=== PATIENT | male | born 1945 | race Caucasian/White ===

== ENCOUNTER 2017-03-14 14:27 | Inpatient (IN) | payer MEDICARE, OTHER ==
[~2017-03-14] VITALS: Ht 180.3 cm; Wt 96.1 kg
[~2017-03-14 14:27] MED LIST: AMLO5TAB2 PO; ASPI-496 PO; ASPI-621 PO; ATOR20TA PO; CALC0.5C PO; CALC200T3 PO; CALC667C PO; CALC667C3 PO; CALC667T PO; CEFD300C37 PO; CINA30TA PO; CLOT100T PO; Clotrimazole PO; DOCU100C8 PO; DOCU100T3 PO; DOXE1CAP PO; EPOE40002 SQ; ERTA1VIA IV; FLUD0.1T PO; FURO40TA6 PO; LEVO125T45 PO; LISI-170 PO; METR250T PO; MIDO5TAB PO; MULT-26 PO; MULT-658 PO; MYCO250C4 PO; MYCO500T PO; MYCO500T3 PO; OMEP-110 PO; OMEP20CA14 PO; OXYC5CAP4 PO; PHOSPHORUS BINDER PO; POTA10TA12 PO; PRED5TAB PO; RENAPLEX D PO; SODI650T PO; TACR1CAP4 PO; TAMS-11 PO; VALG450T PO; VITAMIN C PO; [UNRECOGNIZED DRUG - CODE] PO; [UNRECOGNIZED DRUG - OTHER] PO; [UNRECOGNIZED DRUG - OTHER] PO; [UNRECOGNIZED DRUG - OTHER] PO
[2017-03-14] MEDS ORDERED: SODIUM CHLORIDE FLUSH 10ML SYR IVF ONE (15:30)
[2017-03-14] MEDS ORDERED: ASPIRIN 81 MG TABLET CHEW PO ONE (15:30)
[2017-03-14] MEDS ORDERED: SODIUM CHLORIDE 0.9% 1,000ML IVBOLUS ONE (15:30)
[2017-03-14] MEDS ORDERED: ASPIRIN 81 MG TABLET CHEW ONE (15:52)
[2017-03-14 16:13] LABS: BLOOD UREA NITROGEN 13 mg/dL (7-18)
[2017-03-14 16:17] LABS: ASPARTATE AMINO TRANSFERASE 18 U/L (15-37)
[2017-03-14 16:24] LABS: IS PT STATUS REG ER OR PRE ER? YES
[2017-03-14 16:38] LABS: RAPID INFLUENZA A Negative (Negative); RAPID INFLUENZA B Negative (Negative)
[2017-03-14 16:42] LABS: DIFF TOTAL CELLS COUNTED 100 CELL DIFF
[2017-03-14 16:44] LABS: VERIFY COUNTS? YES
[2017-03-14 16:45] LABS: GIANT PLATELETS 1+
[2017-03-14] MEDS ORDERED: MORPHINE SULFATE 4 MG/ML, 1ML IVPush PRN (17:30)
[2017-03-14] MEDS ORDERED: ONDANSETRON 2MG/ML, 2ML IVP PRN (17:30)
[2017-03-14] MEDS ORDERED: ACETAMINOPHEN 325 MG TABLET PO PRN (17:30)
[2017-03-14] MEDS ORDERED: GUAIFENESIN/DM 200-20MG, 10ML UDC PO PRN (17:30)
[2017-03-14 18:20] VITALS: BP 152/61
[2017-03-14] MEDS: SODIUM CHLORIDE 0.9% 1,000 ML IV SCH (19:10)
[2017-03-14] MEDS: ERTAPENEM 1 GM in SODIUM CHLORIDE 0.9% 50 ML IV SCH (19:10)
[2017-03-14] MEDS: FAMOTIDINE 20 MG TABLET PO SCH (20:56)
[2017-03-14] MEDS: TACROLIMUS 1 MG CAPSULE PO SCH (20:56)
[2017-03-14] MEDS: ATORVASTATIN 20 MG TABLET PO SCH (20:56)
[2017-03-14] MEDS: DOCUSATE 100 MG CAPSULE PO PRN (20:56)
[2017-03-14] MEDS: HYDROcodone/APAP 5/325 TABLET PO PRN (20:57)
[2017-03-14] MEDS: HEPARIN 5,000 UNITS/ML, 1ML SQ SCH (20:59)
[2017-03-14] MEDS: CALCITRIOL 0.5 MCG CAPSULE PO SCH (22:48)
[2017-03-14] MEDS: TEMAZEPAM 15 MG CAPSULE PO PRN (22:48)
[2017-03-14] MEDS: SENNOSIDES 8.6 MG TABLET PO PRN (23:44)
[2017-03-15 02:57] VITALS: BP 110/57
[2017-03-15 05:25] LABS: BLOOD UREA NITROGEN 15 mg/dL (7-18)
[2017-03-15] MEDS: LEVOTHYROXINE 175 MCG TABLET PO SCH (05:47)
[2017-03-15] MEDS: SODIUM CHLORIDE 0.9% 1,000 ML IV SCH ×2 (05:47→13:39)
[2017-03-15] MEDS: HEPARIN 5,000 UNITS/ML, 1ML SQ SCH ×3 (05:49→22:29)
[2017-03-15 07:06] VITALS: BP 116/48
[2017-03-15] MEDS: OMEPRAZOLE 20 MG CAPSULE.DR PO SCH (08:49)
[2017-03-15] MEDS: FAMOTIDINE 20 MG TABLET PO SCH ×2 (08:49→20:05)
[2017-03-15] MEDS: ASPIRIN 81 MG TABLET EC PO SCH (08:50)
[2017-03-15] MEDS: TAMSULOSIN 0.4 MG CAP.ER.24H PO SCH (08:50)
[2017-03-15] MEDS: CALCITRIOL 0.5 MCG CAPSULE PO SCH ×2 (08:51→20:05)
[2017-03-15] MEDS: TACROLIMUS 1 MG CAPSULE PO SCH ×2 (08:51→20:05)
[2017-03-15 10:36] LABS: DIFF TOTAL CELLS COUNTED 100 CELL DIFF
[2017-03-15 10:39] LABS: VERIFY COUNTS? YES
[2017-03-15 12:48] VITALS: BP 110/47
[2017-03-15] MEDS: DOCUSATE 100 MG CAPSULE PO PRN ×2 (13:39→20:23)
[2017-03-15 19:48] VITALS: BP 122/60
[2017-03-15] MEDS: ERTAPENEM 1 GM in SODIUM CHLORIDE 0.9% 50 ML IV SCH (20:05)
[2017-03-15] MEDS: ATORVASTATIN 20 MG TABLET PO SCH (20:05)
[2017-03-15] MEDS: HYDROcodone/APAP 5/325 TABLET PO PRN (20:20)
[2017-03-15] MEDS: TEMAZEPAM 15 MG CAPSULE PO PRN (22:21)
[2017-03-15] MEDS: SENNOSIDES 8.6 MG TABLET PO PRN (22:22)
[2017-03-16] MEDS: SODIUM CHLORIDE 0.9% 1,000 ML IV SCH ×2 (02:44→15:48)
[2017-03-16 03:06] VITALS: BP 132/74
[2017-03-16 05:30] LABS: BLOOD UREA NITROGEN 17 mg/dL (7-18)
[2017-03-16] MEDS: LEVOTHYROXINE 175 MCG TABLET PO SCH (05:37)
[2017-03-16] MEDS: HEPARIN 5,000 UNITS/ML, 1ML SQ SCH ×3 (05:38→21:13)
[2017-03-16 06:43] VITALS: BP 141/66
[2017-03-16] MEDS: TACROLIMUS 1 MG CAPSULE PO SCH ×2 (09:08→21:35)
[2017-03-16] MEDS: TAMSULOSIN 0.4 MG CAP.ER.24H PO SCH (09:08)
[2017-03-16] MEDS: ASPIRIN 81 MG TABLET EC PO SCH (09:08)
[2017-03-16] MEDS: CALCITRIOL 0.5 MCG CAPSULE PO SCH ×2 (09:09→21:13)
[2017-03-16] MEDS: OMEPRAZOLE 20 MG CAPSULE.DR PO SCH (09:09)
[2017-03-16] MEDS: FAMOTIDINE 20 MG TABLET PO SCH ×2 (09:10→21:12)
[2017-03-16] MEDS ORDERED: POLYETHYLENE GLYCOL 17 GM PACKET PO PRN (09:30)
[2017-03-16] MEDS ORDERED: LACTULOSE 20 GM/30 ML UDC PO ONE (09:30)
[2017-03-16] MEDS: CALCIUM CARBONATE 500 MG TABLET PO SCH ×2 (12:21→21:12)
[2017-03-16 13:20] VITALS: BP 137/72
[2017-03-16] MEDS: ATORVASTATIN 20 MG TABLET PO SCH (21:12)
[2017-03-16] MEDS: ERTAPENEM 1 GM in SODIUM CHLORIDE 0.9% 50 ML IV SCH (21:12)
[2017-03-16] MEDS: TEMAZEPAM 15 MG CAPSULE PO PRN (21:35)
[2017-03-16 23:53] VITALS: BP 130/70
[2017-03-17 04:33] VITALS: BP 133/74
[2017-03-17] MEDS: LEVOTHYROXINE 175 MCG TABLET PO SCH (05:46)
[2017-03-17] MEDS: HEPARIN 5,000 UNITS/ML, 1ML SQ SCH ×3 (05:46→21:07)
[2017-03-17 06:17] LABS: BLOOD UREA NITROGEN 11 mg/dL (7-18)
[2017-03-17] MEDS: TAMSULOSIN 0.4 MG CAP.ER.24H PO SCH (07:54)
[2017-03-17] MEDS: CALCIUM CARBONATE 500 MG TABLET PO SCH ×4 (07:54→21:07)
[2017-03-17] MEDS: FAMOTIDINE 20 MG TABLET PO SCH ×2 (07:54→21:07)
[2017-03-17] MEDS: OMEPRAZOLE 20 MG CAPSULE.DR PO SCH (07:54)
[2017-03-17] MEDS: TACROLIMUS 1 MG CAPSULE PO SCH ×2 (07:54→21:07)
[2017-03-17] MEDS: ASPIRIN 81 MG TABLET EC PO SCH (07:54)
[2017-03-17] MEDS: CALCITRIOL 0.5 MCG CAPSULE PO SCH ×2 (07:54→21:07)
[2017-03-17] MEDS: SODIUM CHLORIDE 0.9% 1,000 ML IV SCH (08:30)
[2017-03-17 09:42] VITALS: BP 136/67
[2017-03-17] MEDS ORDERED: POTASSIUM CHLORIDE 20 MEQ TAB.ER.PRT PO ONE (11:30)
[2017-03-17 16:42] VITALS: BP 115/66
[2017-03-17 18:37] VITALS: BP 129/70
[2017-03-17] MEDS: ATORVASTATIN 20 MG TABLET PO SCH (21:06)
[2017-03-17] MEDS: ERTAPENEM 1 GM in SODIUM CHLORIDE 0.9% 50 ML IV SCH (21:06)
[2017-03-17] MEDS: TEMAZEPAM 15 MG CAPSULE PO PRN (21:59)
[2017-03-18 03:32] VITALS: BP 146/81
[2017-03-18] MEDS: HEPARIN 5,000 UNITS/ML, 1ML SQ SCH ×3 (05:14→20:37)
[2017-03-18] MEDS: LEVOTHYROXINE 175 MCG TABLET PO SCH (05:14)
[2017-03-18 05:52] LABS: BLOOD UREA NITROGEN 11 mg/dL (7-18)
[2017-03-18 08:10] VITALS: BP 158/71
[2017-03-18] MEDS: TACROLIMUS 1 MG CAPSULE PO SCH ×2 (08:33→20:37)
[2017-03-18] MEDS: CALCITRIOL 0.5 MCG CAPSULE PO SCH ×2 (09:00→20:36)
[2017-03-18] MEDS: TAMSULOSIN 0.4 MG CAP.ER.24H PO SCH (09:00)
[2017-03-18] MEDS: ASPIRIN 81 MG TABLET EC PO SCH (09:00)
[2017-03-18] MEDS: FAMOTIDINE 20 MG TABLET PO SCH ×2 (09:00→20:36)
[2017-03-18] MEDS: CALCIUM CARBONATE 500 MG TABLET PO SCH ×3 (09:00→20:36)
[2017-03-18] MEDS: OMEPRAZOLE 20 MG CAPSULE.DR PO SCH (09:00)
[2017-03-18] MEDS ORDERED: MIDAZOLAM 1 MG/ML, 5ML ONE (13:03)
[2017-03-18] MEDS ORDERED: FENTANYL PF 100 MCG/2ML ONE (13:03)
[2017-03-18 14:48] VITALS: BP 122/63
[2017-03-18] MEDS: ERTAPENEM 1 GM in SODIUM CHLORIDE 0.9% 50 ML IV SCH (18:04)
[2017-03-18 19:50] VITALS: BP 126/58
[2017-03-18] MEDS: ATORVASTATIN 20 MG TABLET PO SCH (20:36)
[2017-03-18] MEDS: TEMAZEPAM 15 MG CAPSULE PO PRN (22:05)
[2017-03-19 03:11] VITALS: BP 128/57
[2017-03-19] MEDS: LEVOTHYROXINE 175 MCG TABLET PO SCH (05:14)
[2017-03-19] MEDS: HEPARIN 5,000 UNITS/ML, 1ML SQ SCH (05:15)
[2017-03-19 08:47] VITALS: BP 158/83
[2017-03-19] MEDS: OMEPRAZOLE 20 MG CAPSULE.DR PO SCH (08:50)
[2017-03-19] MEDS: ASPIRIN 81 MG TABLET EC PO SCH (08:50)
[2017-03-19] MEDS: TACROLIMUS 1 MG CAPSULE PO SCH (08:50)
[2017-03-19] MEDS: FAMOTIDINE 20 MG TABLET PO SCH (08:51)
[2017-03-19] MEDS: CALCIUM CARBONATE 500 MG TABLET PO SCH (08:51)
[2017-03-19] MEDS: TAMSULOSIN 0.4 MG CAP.ER.24H PO SCH (08:51)
[2017-03-19] MEDS: CALCITRIOL 0.5 MCG CAPSULE PO SCH (08:51)
[2017-03-19] MEDS: ERTAPENEM 1 GM in SODIUM CHLORIDE 0.9% 50 ML IV SCH (12:01)
[2017-03-19] MEDS ORDERED: TACROLIMUS PO ×2 (13:29)
== END 2017-03-19 16:29 | disposition home or self-care (01) | DRG 871 ==
LOC: ED 16:57 → EDIP 16:58 → ED 17:21 → 3NW 18:15
PROVIDERS: ADMIT Internal Medicine; ATTEND Internal Medicine
PROC: 0T9B70Z Drainage of Bladder with Drainage Device, Via Natural or Artificial Opening (ICD-10-PCS; 2017-03-14)
PROC: 02HV33Z Insertion of Infusion Device into Superior Vena Cava, Percutaneous Approach (ICD-10-PCS; principal; 2017-03-18)
PROC: B5181ZA Fluoroscopy of Superior Vena Cava using Low Osmolar Contrast, Guidance (ICD-10-PCS; 2017-03-18)
PROC: 0JH63XZ Insertion of Tunneled Vascular Access Device into Chest Subcutaneous Tissue and Fascia, Percutaneous Approach (ICD-10-PCS; 2017-03-18)
DX: A41.9 Sepsis, unspecified organism (principal); N17.0 Acute kidney failure with tubular necrosis; Z94.0 Kidney transplant status; E46 Unspecified protein-calorie malnutrition; N10 Acute pyelonephritis; D84.8 Other specified immunodeficiencies; R00.0 Tachycardia, unspecified; B96.1 Klebsiella pneumoniae [K. pneumoniae] as the cause of diseases classified elsewhere; D63.8 Anemia in other chronic diseases classified elsewhere; E78.00 Pure hypercholesterolemia, unspecified; E78.5 Hyperlipidemia, unspecified; E83.51 Hypocalcemia; E89.0 Postprocedural hypothyroidism; I25.10 Atherosclerotic heart disease of native coronary artery without angina pectoris; I44.1 Atrioventricular block, second degree; J44.9 Chronic obstructive pulmonary disease, unspecified; K59.00 Constipation, unspecified; Z16.12 Extended spectrum beta lactamase (ESBL) resistance; N18.3 Chronic kidney disease, stage 3 (moderate); I12.9 Hypertensive chronic kidney disease with stage 1 through stage 4 chronic kidney disease, or unspecified chronic kidney disease; B96.20 Unspecified Escherichia coli [E. coli] as the cause of diseases classified elsewhere; M19.90 Unspecified osteoarthritis, unspecified site; E66.9 Obesity, unspecified; N30.90 Cystitis, unspecified without hematuria; Z79.82 Long term (current) use of aspirin; Z82.49 Family history of ischemic heart disease and other diseases of the circulatory system; Z83.3 Family history of diabetes mellitus; Z85.528 Personal history of other malignant neoplasm of kidney; Z87.440 Personal history of urinary (tract) infections; Z87.442 Personal history of urinary calculi; Z90.49 Acquired absence of other specified parts of digestive tract; Z90.5 Acquired absence of kidney; Z98.84 Bariatric surgery status; Z99.2 Dependence on renal dialysis; Z87.01 Personal history of pneumonia (recurrent); Z88.8 Allergy status to other drugs, medicaments and biological substances; Z91.041 Radiographic dye allergy status; Z68.29 Body mass index [BMI] 29.0-29.9, adult; Z87.891 Personal history of nicotine dependence; J84.10 Pulmonary fibrosis, unspecified
CPT/HCPCS: 36415; 36558; 71010; 76937; 77001; 80048; 80053; 80197; 81001; 83605; 84145; 84443; 84484; 85025; 85610; 85730; 87040; 87077; 87086; 87186; 87400; 93005; J1335; J1644; J2250; J3010; J7507; C1751; J7030; J7512; J7517

== ENCOUNTER 2017-04-29 10:17 | Day surgery (SDC) | payer MEDICARE, OTHER ==
[~2017-04-29] VITALS: Ht 180.3 cm; Wt 96.0 kg
[~2017-04-29 10:17] MED LIST changes: +TACROLIMUS PO
[2017-04-29 11:13] VITALS: BP 155/84
[2017-04-29] MEDS ORDERED: SODIUM CHLORIDE 0.9% 1,000 ML IV SCH (11:15)
[2017-04-29] MEDS ORDERED: FLUMAZENIL 0.1 MG/1 ML, 5ML ONE (11:30)
[2017-04-29] MEDS ORDERED: MIDAZOLAM 1 MG/ML, 5ML ONE (11:30)
[2017-04-29] MEDS ORDERED: NALOXONE 1 MG/ML, 2ML ONE (11:30)
[2017-04-29] MEDS ORDERED: FENTANYL PF 100 MCG/2ML ONE (11:30)
[2017-04-29] MEDS ORDERED: LIDOCAINE 1%, 20ML ONE (11:32)
== END 2017-04-29 13:15 | disposition home or self-care (01) ==
LOC: OUT 10:17
PROVIDERS: ATTEND Internal Medicine Infectious Disease
DX: Z45.2 Encounter for adjustment and management of vascular access device (principal); I13.0 Hypertensive heart and chronic kidney disease with heart failure and stage 1 through stage 4 chronic kidney disease, or unspecified chronic kidney disease; I50.30 Unspecified diastolic (congestive) heart failure; N18.6 End stage renal disease; E03.9 Hypothyroidism, unspecified; E78.00 Pure hypercholesterolemia, unspecified; E78.5 Hyperlipidemia, unspecified; E66.9 Obesity, unspecified; F17.210 Nicotine dependence, cigarettes, uncomplicated; M19.90 Unspecified osteoarthritis, unspecified site; D63.8 Anemia in other chronic diseases classified elsewhere; Z90.5 Acquired absence of kidney; Z90.49 Acquired absence of other specified parts of digestive tract; Z88.8 Allergy status to other drugs, medicaments and biological substances; Z83.3 Family history of diabetes mellitus; Z82.49 Family history of ischemic heart disease and other diseases of the circulatory system; Z94.0 Kidney transplant status; Z68.39 Body mass index [BMI] 39.0-39.9, adult; Z79.82 Long term (current) use of aspirin; Z85.528 Personal history of other malignant neoplasm of kidney; R00.0 Tachycardia, unspecified; Z98.84 Bariatric surgery status
CPT/HCPCS: 36589; 77001; 99156; 99157; J2250; J3010; J3490; J7030; J2310

== ENCOUNTER 2017-05-02 10:33 | Inpatient (IN) | payer MEDICARE, OTHER ==
[~2017-05-02] VITALS: Ht 180.3 cm; Wt 96.8 kg
[2017-05-02] MEDS ORDERED: DOCUSATE 100 MG CAPSULE PO PRN (15:00)
[2017-05-02] MEDS ORDERED: ACETAMINOPHEN 325 MG TABLET ONE (16:54)
[2017-05-03] MEDS: LEVOTHYROXINE 175 MCG TABLET PO SCH (00:15)
[2017-05-03] MEDS ORDERED: HEPARIN 5,000 UNITS/ML, 1ML ONE (00:15)
[2017-05-03] MEDS: HEPARIN 5,000 UNITS/ML, 1ML SQ SCH ×4 (00:15→21:58)
[2017-05-03] MEDS: MEROPENEM 1 GM in SODIUM CHLORIDE 0.9% 100 ML IV SCH ×2 (02:00→14:00)
[2017-05-03] MEDS ORDERED: ACETAMINOPHEN 325 MG TABLET ONE (02:21)
[2017-05-03 07:29] VITALS: BP 127/63
[2017-05-03] MEDS: TACROLIMUS 1 MG CAPSULE PO SCH ×3 (10:00→21:28)
[2017-05-03] MEDS: VALGANCICLOVIR 450MG TABLET PO SCH (13:00)
[2017-05-03 14:45] VITALS: BP 110/63
[2017-05-03] MEDS ORDERED: TACR1CAP2 PO (14:45)
[2017-05-03] MEDS ORDERED: ACETAMINOPHEN 325 MG TABLET PO PRN (15:00)
[2017-05-03] MEDS ORDERED: MYCO500T PO (15:04)
[2017-05-03] MEDS ORDERED: OMEP20CA14 PO (15:14)
[2017-05-03] MEDS ORDERED: PRED-402 PO (15:17)
[2017-05-03] MEDS ORDERED: VALG450T PO (15:19)
[2017-05-03] MEDS ORDERED: SULF1TAB23 PO (15:21)
[2017-05-03] MEDS ORDERED: LEVO175T31 PO (15:24)
[2017-05-03] MEDS ORDERED: CALC0.5C PO (15:26)
[2017-05-03] MEDS ORDERED: TAMS-11 PO (15:26)
[2017-05-03] MEDS ORDERED: POTA10TA11 PO (15:31)
[2017-05-03] MEDS ORDERED: MAGN400T36 PO (15:33)
[2017-05-03 20:26] VITALS: BP 121/66
[2017-05-03] MEDS ORDERED: TACROLIMUS 1 MG CAPSULE PO SCH (21:00)
[2017-05-03] MEDS: ATORVASTATIN 20 MG TABLET PO SCH (21:28)
[2017-05-03] MEDS: POTASSIUM CHLORIDE 10 MEQ TABLET.ER PO SCH (21:28)
[2017-05-03] MEDS: CALCITRIOL 0.5 MCG CAPSULE PO SCH (21:57)
[2017-05-04] MEDS: MEROPENEM 1 GM in SODIUM CHLORIDE 0.9% 100 ML IV SCH ×2 (01:52→14:34)
[2017-05-04 01:55] VITALS: BP 97/61
[2017-05-04 06:01] LABS: ASPARTATE AMINO TRANSFERASE 12 U/L (15-37); BLOOD UREA NITROGEN 20 mg/dL (7-18)
[2017-05-04] MEDS: LEVOTHYROXINE 175 MCG TABLET PO SCH (06:24)
[2017-05-04] MEDS: HEPARIN 5,000 UNITS/ML, 1ML SQ SCH ×3 (06:25→22:00)
[2017-05-04] MEDS: ASPIRIN 81 MG TABLET EC PO SCH (08:45)
[2017-05-04] MEDS: VALGANCICLOVIR 450MG TABLET PO SCH (08:45)
[2017-05-04] MEDS: POTASSIUM CHLORIDE 10 MEQ TABLET.ER PO SCH ×2 (08:45→20:14)
[2017-05-04] MEDS: TACROLIMUS 1 MG CAPSULE PO SCH ×2 (08:45→20:14)
[2017-05-04] MEDS: TAMSULOSIN 0.4 MG CAP.ER.24H PO SCH (08:45)
[2017-05-04] MEDS: CALCITRIOL 0.5 MCG CAPSULE PO SCH ×2 (08:45→20:15)
[2017-05-04 12:09] VITALS: BP 144/86
[2017-05-04 16:07] VITALS: BP 136/82
[2017-05-04 19:59] VITALS: BP 114/70
[2017-05-04] MEDS: ATORVASTATIN 20 MG TABLET PO SCH (20:14)
[2017-05-04] MEDS ORDERED: TEMAZEPAM 15 MG CAPSULE PO ONE (21:00)
[2017-05-04 23:06] LABS: ABSOLUTE CD 4 HELPER 29 /uL (359-1519); HEMATOCRIT 36.9 % (37.5-51.0); HEMOGLOBIN 12.4 g/dL (12.6-17.7); IMMATURE GRANULOCYTES 0 % (.); MCH 31.4 pg (26.6-33.0); MCHC 33.6 g/dL (31.5-35.7); MCV 93 fL (79-97); MONOCYTES 7 % (.); NEUTROPHILS 91 % (.); PLATELETS 143 x10E3/uL (150-379); RBC 3.95 x10E6/uL (4.14-5.80); RDW 14.3 % (12.3-15.4); WBC 15.4 x10E3/uL (3.4-10.8)
[2017-05-05 01:59] VITALS: BP 124/80
[2017-05-05] MEDS: MEROPENEM 1 GM in SODIUM CHLORIDE 0.9% 100 ML IV SCH ×2 (02:04→14:28)
[2017-05-05] MEDS: LEVOTHYROXINE 175 MCG TABLET PO SCH (06:08)
[2017-05-05] MEDS: HEPARIN 5,000 UNITS/ML, 1ML SQ SCH ×3 (06:08→21:56)
[2017-05-05 08:01] VITALS: BP 117/72
[2017-05-05] MEDS: ASPIRIN 81 MG TABLET EC PO SCH (08:03)
[2017-05-05] MEDS: CALCITRIOL 0.5 MCG CAPSULE PO SCH ×2 (08:03→20:09)
[2017-05-05] MEDS: TACROLIMUS 1 MG CAPSULE PO SCH ×2 (08:03→20:08)
[2017-05-05] MEDS: TAMSULOSIN 0.4 MG CAP.ER.24H PO SCH (08:03)
[2017-05-05] MEDS: POTASSIUM CHLORIDE 10 MEQ TABLET.ER PO SCH ×2 (08:03→20:09)
[2017-05-05] MEDS: VALGANCICLOVIR 450MG TABLET PO SCH (08:04)
[2017-05-05 10:04] LABS: ASPARTATE AMINO TRANSFERASE 16 U/L (15-37)
[2017-05-05 10:09] LABS: BLOOD UREA NITROGEN 19 mg/dL (7-18)
[2017-05-05 14:31] VITALS: BP 116/64
[2017-05-05 15:12] VITALS: BP 119/66
[2017-05-05 15:42] LABS: ASPARTATE AMINO TRANSFERASE 12 U/L (15-37); BLOOD UREA NITROGEN 21 mg/dL (7-18)
[2017-05-05 16:00] LABS: ASPARTATE AMINO TRANSFERASE 18 U/L (15-37); BLOOD UREA NITROGEN 18 mg/dL (7-18)
[2017-05-05 20:07] VITALS: BP 121/71
[2017-05-05] MEDS: ATORVASTATIN 20 MG TABLET PO SCH (20:08)
[2017-05-05] MEDS: TEMAZEPAM 15 MG CAPSULE PO PRN (21:56)
[2017-05-06] MEDS: MEROPENEM 1 GM in SODIUM CHLORIDE 0.9% 100 ML IV SCH ×2 (01:34→14:29)
[2017-05-06 01:38] VITALS: BP 126/78
[2017-05-06 05:43] LABS: ASPARTATE AMINO TRANSFERASE 21 U/L (15-37); BLOOD UREA NITROGEN 17 mg/dL (7-18)
[2017-05-06] MEDS: LEVOTHYROXINE 175 MCG TABLET PO SCH (06:03)
[2017-05-06] MEDS: HEPARIN 5,000 UNITS/ML, 1ML SQ SCH ×3 (06:04→21:19)
[2017-05-06 08:00] VITALS: BP 121/72
[2017-05-06] MEDS: CALCITRIOL 0.5 MCG CAPSULE PO SCH ×2 (09:09→21:18)
[2017-05-06] MEDS: VALGANCICLOVIR 450MG TABLET PO SCH (09:09)
[2017-05-06] MEDS: TAMSULOSIN 0.4 MG CAP.ER.24H PO SCH (09:10)
[2017-05-06] MEDS: ASPIRIN 81 MG TABLET EC PO SCH (09:10)
[2017-05-06] MEDS: POTASSIUM CHLORIDE 10 MEQ TABLET.ER PO SCH ×2 (09:10→21:19)
[2017-05-06] MEDS: TACROLIMUS 1 MG CAPSULE PO SCH ×2 (09:10→21:19)
[2017-05-06 14:00] VITALS: BP 120/73
[2017-05-06 20:00] VITALS: BP 129/69
[2017-05-06] MEDS: ATORVASTATIN 20 MG TABLET PO SCH (21:19)
[2017-05-06] MEDS: TEMAZEPAM 15 MG CAPSULE PO PRN (23:01)
[2017-05-07 02:00] VITALS: BP 111/67
[2017-05-07] MEDS: MEROPENEM 1 GM in SODIUM CHLORIDE 0.9% 100 ML IV SCH ×2 (02:30→14:25)
[2017-05-07 05:34] LABS: BLOOD UREA NITROGEN 13 mg/dL (7-18)
[2017-05-07] MEDS: HEPARIN 5,000 UNITS/ML, 1ML SQ SCH ×3 (06:00→21:10)
[2017-05-07] MEDS: LEVOTHYROXINE 175 MCG TABLET PO SCH (06:00)
[2017-05-07 06:35] VITALS: BP 113/68
[2017-05-07] MEDS: ASPIRIN 81 MG TABLET EC PO SCH (08:22)
[2017-05-07] MEDS: VALGANCICLOVIR 450MG TABLET PO SCH (08:22)
[2017-05-07] MEDS: POTASSIUM CHLORIDE 10 MEQ TABLET.ER PO SCH ×2 (08:22→21:10)
[2017-05-07] MEDS: TAMSULOSIN 0.4 MG CAP.ER.24H PO SCH (08:22)
[2017-05-07] MEDS: TACROLIMUS 1 MG CAPSULE PO SCH ×2 (08:22→21:09)
[2017-05-07] MEDS: CALCITRIOL 0.5 MCG CAPSULE PO SCH ×2 (08:22→21:10)
[2017-05-07 13:27] VITALS: BP 106/69
[2017-05-07 19:52] VITALS: BP 118/72
[2017-05-07] MEDS: ATORVASTATIN 20 MG TABLET PO SCH (21:10)
[2017-05-07] MEDS: TEMAZEPAM 15 MG CAPSULE PO PRN (22:56)
[2017-05-08 02:00] VITALS: BP 114/68
[2017-05-08] MEDS: MEROPENEM 1 GM in SODIUM CHLORIDE 0.9% 100 ML IV SCH ×2 (02:23→14:29)
[2017-05-08 05:44] LABS: ASPARTATE AMINO TRANSFERASE 31 U/L (15-37); BLOOD UREA NITROGEN 12 mg/dL (7-18); TOTAL IRON BINDING CAPACITY 283 mcg/dL (250-450)
[2017-05-08] MEDS: HEPARIN 5,000 UNITS/ML, 1ML SQ SCH ×3 (06:00→20:41)
[2017-05-08] MEDS: LEVOTHYROXINE 175 MCG TABLET PO SCH (06:24)
[2017-05-08 07:00] VITALS: BP 108/65
[2017-05-08] MEDS: ASPIRIN 81 MG TABLET EC PO SCH (07:22)
[2017-05-08] MEDS: VALGANCICLOVIR 450MG TABLET PO SCH (08:07)
[2017-05-08] MEDS: TACROLIMUS 1 MG CAPSULE PO SCH ×2 (08:07→20:42)
[2017-05-08] MEDS: TAMSULOSIN 0.4 MG CAP.ER.24H PO SCH (08:07)
[2017-05-08] MEDS: POTASSIUM CHLORIDE 10 MEQ TABLET.ER PO SCH ×2 (08:07→20:42)
[2017-05-08] MEDS: CALCITRIOL 0.5 MCG CAPSULE PO SCH ×2 (08:07→20:42)
[2017-05-08] MEDS ORDERED: METOPROLOL TARTRATE 25 MG TABLET PO SCH (09:30)
[2017-05-08] MEDS ORDERED: LIDOCAINE 2%, 20ML ONE (11:45)
[2017-05-08] MEDS ORDERED: MIDAZOLAM 1 MG/ML, 5ML ONE (12:09)
[2017-05-08] MEDS ORDERED: FENTANYL PF 100 MCG/2ML ONE (12:09)
[2017-05-08 14:27] VITALS: BP 107/55
[2017-05-08] MEDS: POTASSIUM CHLORIDE 20 MEQ TAB.ER.PRT PO SCH (16:30)
[2017-05-08 19:46] VITALS: BP 111/70
[2017-05-08] MEDS: ATORVASTATIN 20 MG TABLET PO SCH (20:42)
[2017-05-08] MEDS ORDERED: APIXABAN 5 MG TABLET PO SCH (21:00)
[2017-05-08] MEDS: TEMAZEPAM 15 MG CAPSULE PO PRN (22:31)
[2017-05-09] MEDS: MEROPENEM 1 GM in SODIUM CHLORIDE 0.9% 100 ML IV SCH ×2 (02:29→12:09)
[2017-05-09 03:07] VITALS: BP 107/62
[2017-05-09 04:11] LABS: ASPARTATE AMINO TRANSFERASE 24 U/L (15-37); BLOOD UREA NITROGEN 17 mg/dL (7-18)
[2017-05-09] MEDS: HEPARIN 5,000 UNITS/ML, 1ML SQ SCH (05:45)
[2017-05-09] MEDS: LEVOTHYROXINE 175 MCG TABLET PO SCH (05:45)
[2017-05-09 07:18] VITALS: BP 107/66
[2017-05-09] MEDS: TAMSULOSIN 0.4 MG CAP.ER.24H PO SCH (08:06)
[2017-05-09] MEDS: POTASSIUM CHLORIDE 10 MEQ TABLET.ER PO SCH (08:06)
[2017-05-09] MEDS: ASPIRIN 81 MG TABLET EC PO SCH (08:06)
[2017-05-09] MEDS: TACROLIMUS 1 MG CAPSULE PO SCH (08:06)
[2017-05-09] MEDS: CALCITRIOL 0.5 MCG CAPSULE PO SCH (08:07)
[2017-05-09] MEDS: VALGANCICLOVIR 450MG TABLET PO SCH (08:07)
[2017-05-09] MEDS: POTASSIUM CHLORIDE 20 MEQ TAB.ER.PRT PO SCH (08:07)
[2017-05-09] MEDS ORDERED: ERTA1VIA IV (11:04)
[2017-05-09] MEDS ORDERED: PRED5TAB PO (11:04)
[2017-05-09] MEDS ORDERED: MYCO500T3 PO (11:10)
[2017-05-09 12:53] VITALS: BP 110/66
[2017-05-13 18:07] LABS: COCCIDIOIDES AB (CF) <1:2 (<1:2); COCCIDIOIDES IGG 1.7 IV (<=0.9); COCCIDIOIDES IGM 0.2 IV (<=0.9)
== END 2017-05-09 12:08 | disposition home or self-care (01) | DRG 872 ==
LOC: ED 10:33 → 4WST 14:38 → UNDOADMIN 17:01 → EDIP 17:01 → 4WST 21:00 → EDIP 21:00
PROVIDERS: ADMIT Internal Medicine; ATTEND Internal Medicine
PROC: 05HM33Z Insertion of Infusion Device into Right Internal Jugular Vein, Percutaneous Approach (ICD-10-PCS; principal; 2017-05-08)
PROC: B5131ZA Fluoroscopy of Right Jugular Veins using Low Osmolar Contrast, Guidance (ICD-10-PCS; 2017-05-08)
DX: A41.9 Sepsis, unspecified organism (principal); N12 Tubulo-interstitial nephritis, not specified as acute or chronic; I50.32 Chronic diastolic (congestive) heart failure; I13.0 Hypertensive heart and chronic kidney disease with heart failure and stage 1 through stage 4 chronic kidney disease, or unspecified chronic kidney disease; E44.0 Moderate protein-calorie malnutrition; N17.9 Acute kidney failure, unspecified; T86.13 Kidney transplant infection; Z68.29 Body mass index [BMI] 29.0-29.9, adult; B96.20 Unspecified Escherichia coli [E. coli] as the cause of diseases classified elsewhere; D63.1 Anemia in chronic kidney disease; E21.3 Hyperparathyroidism, unspecified; E89.0 Postprocedural hypothyroidism; I25.10 Atherosclerotic heart disease of native coronary artery without angina pectoris; I44.1 Atrioventricular block, second degree; I48.0 Paroxysmal atrial fibrillation; N18.3 Chronic kidney disease, stage 3 (moderate); N20.0 Calculus of kidney; N25.0 Renal osteodystrophy; R65.20 Severe sepsis without septic shock; Z79.2 Long term (current) use of antibiotics; Z83.3 Family history of diabetes mellitus; Z84.1 Family history of disorders of kidney and ureter; Z85.528 Personal history of other malignant neoplasm of kidney; Z87.440 Personal history of urinary (tract) infections; Z87.442 Personal history of urinary calculi; Z87.891 Personal history of nicotine dependence; Z90.49 Acquired absence of other specified parts of digestive tract; Z90.5 Acquired absence of kidney; J84.10 Pulmonary fibrosis, unspecified
CPT/HCPCS: 36415; 36558; 71020; 74176; 76937; 77001; 80048; 80053; 81001; 82306; 82728; 83540; 83550; 83605; 83970; 84100; 85025; 85610; 85730; 86361; 86635; 87040; 87077; 87086; 87186; 87324; 93005; 93306; 99285; C1894; J1644; J2185; J2250; J3010; J3490; J7507; J1642; J7512; J7517

== ENCOUNTER → 2017-06-01 | Outpatient (CLI) | payer MEDICARE, OTHER ==
[~2017-06-01] MED LIST changes: +LEVO175T31 PO; +MAGN400T36 PO; +POTA10TA11 PO; +PRED-402 PO; +SULF1TAB23 PO; +TACR1CAP2 PO
== END | disposition home or self-care (01) ==
LOC: STAR 13:52
PROVIDERS: ATTEND Internal Medicine Infectious Disease
DX: Z01.818 Encounter for other preprocedural examination (principal); I45.81 Long QT syndrome
CPT/HCPCS: 93005

== ENCOUNTER → 2017-06-02 | Outpatient (CLI) | payer MEDICARE, OTHER ==
[~2017-06-02] MED LIST changes: +HEPARIN 5,000 UNITS/ML, 1ML ONE
== END | disposition home or self-care (01) ==
LOC: CFH 10:03
PROVIDERS: ATTEND Nurse Practitioner Family
DX: Z02.9 Encounter for administrative examinations, unspecified (principal)
CPT/HCPCS: 71020

== ENCOUNTER 2017-07-13 21:04 | Emergency (ER) | payer MEDICARE, OTHER ==
[~2017-07-13] VITALS: Ht 180.3 cm; Wt 99.7 kg
[~2017-07-13 21:04] MED LIST changes: -HEPARIN 5,000 UNITS/ML, 1ML ONE
[2017-07-13] MEDS ORDERED: SODIUM CHLORIDE FLUSH 10ML SYR IVF ONE (21:30)
[2017-07-13 22:03] LABS: HEMATOCRIT 36.7 % (39.2-51.8); HEMOGLOBIN 12.3 g/dL (13.7-18.0); WHITE BLOOD COUNT 9.3 x10^3/uL (3.4-10)
[2017-07-13 22:17] LABS: ASPARTATE AMINO TRANSFERASE 18 U/L (15-37); BLOOD UREA NITROGEN 14 mg/dL (7-18)
[2017-07-13] MEDS ORDERED: AMLO5TAB2 PO (22:21)
[2017-07-13] MEDS ORDERED: LEVO500T8 PO (22:21)
[2017-07-13] MEDS ORDERED: FINA5TAB4 PO (22:21)
[2017-07-14 00:23] VITALS: BP 123/69
== END 2017-07-14 00:25 | disposition home or self-care (01) ==
LOC: ED 22:37
DX: R50.9 Fever, unspecified (principal); R30.0 Dysuria; R51 Headache
CPT/HCPCS: 36415; 71020; 80053; 81003; 83605; 84145; 85025; 85610; 85730; 87040; 87077; 87150; 87186; 99285

== ENCOUNTER 2017-07-14 19:27 | Inpatient (IN) | payer MEDICARE, OTHER ==
[~2017-07-14] VITALS: Ht 181.6 cm; Wt 102.4 kg
[~2017-07-14 19:27] MED LIST changes: +FINA5TAB4 PO; +LEVO500T8 PO
[2017-07-14] MEDS ORDERED: SODIUM CHLORIDE FLUSH 10ML SYR IVF ONE (20:00)
[2017-07-14] MEDS ORDERED: SODIUM CHLORIDE 0.9% 1,000ML IVBOLUS ONE (20:00)
[2017-07-14 20:04] LABS: HEMATOCRIT 36.6 % (39.2-51.8); HEMOGLOBIN 12.4 g/dL (13.7-18.0); WHITE BLOOD COUNT 7.6 x10^3/uL (3.4-10)
[2017-07-14 20:13] LABS: ASPARTATE AMINO TRANSFERASE 19 U/L (15-37); BLOOD UREA NITROGEN 11 mg/dL (7-18)
[2017-07-14] MEDS ORDERED: PHARMACOKINETIC MONITORING MC ONE (21:00)
[2017-07-14] MEDS ORDERED: VANCOMYCIN PER PHARMACY MC ONE (21:00)
[2017-07-14] MEDS ORDERED: PHARMACOKINETIC CONSULTATION MC ONE ×2 (21:00→23:00)
[2017-07-14] MEDS ORDERED: VANCOMYCIN 1,800 MG in SODIUM CHLORIDE 0.9% 250 ML IV ONE (21:00)
[2017-07-14] MEDS ORDERED: TEMAZEPAM 15 MG CAPSULE PO PRN (22:00)
[2017-07-14] MEDS ORDERED: ONDANSETRON 2MG/ML, 2ML IVPush PRN (22:00)
[2017-07-14] MEDS ORDERED: BISACODYL 10 MG SUPP PR PRN (22:00)
[2017-07-14] MEDS ORDERED: POLYETHYLENE GLYCOL 17 GM PACKET PO PRN (22:00)
[2017-07-14] MEDS ORDERED: ACETAMINOPHEN 325 MG TABLET PO PRN (22:00)
[2017-07-14] MEDS ORDERED: VANCOMYCIN PER PHARMACY MC PRN (22:00)
[2017-07-14] MEDS ORDERED: DOCUSATE 100 MG CAPSULE PO PRN (22:00)
[2017-07-14] MEDS ORDERED: HYDROcodone/APAP 5/325 TABLET PO PRN (22:00)
[2017-07-14 22:30] VITALS: BP 112/66
[2017-07-14 22:40] VITALS: BP 112/66
[2017-07-14] MEDS ORDERED: PHARMACOKINETIC MONITORING MC PRN (23:00)
[2017-07-14] MEDS: MEROPENEM 1 GM in SODIUM CHLORIDE 0.9% 50 ML IV SCH (23:56)
[2017-07-14] MEDS: ENOXAPARIN 40 MG/0.4 ML SQ SCH (23:56)
[2017-07-15 00:39] LABS: BLOOD UREA NITROGEN 11 mg/dL (7-18)
[2017-07-15 01:55] LABS: DIFF TOTAL CELLS COUNTED 100 CELL DIFF; HEMATOCRIT 33.3 % (39.2-51.8); WHITE BLOOD COUNT 6.3 x10^3/uL (3.4-10)
[2017-07-15 01:59] LABS: VERIFY COUNTS? YES
[2017-07-15 02:04] LABS: OVALOCYTES 1+; POLYCHROMASIA 1+
[2017-07-15 04:17] VITALS: BP 131/57
[2017-07-15] MEDS: MEROPENEM 1 GM in SODIUM CHLORIDE 0.9% 50 ML IV SCH ×3 (07:10→23:45)
[2017-07-15 07:18] VITALS: BP 112/66
[2017-07-15] MEDS: TAMSULOSIN 0.4 MG CAP.ER.24H PO SCH (08:36)
[2017-07-15] MEDS: ASPIRIN 81 MG TABLET EC PO SCH (08:36)
[2017-07-15] MEDS: SODIUM CHLORIDE FLUSH 10ML SYR IVF SCH ×2 (08:36→20:20)
[2017-07-15] MEDS: LEVOTHYROXINE 175 MCG TABLET PO SCH (08:37)
[2017-07-15] MEDS: MAGNESIUM OXIDE 400 MG TABLET PO SCH ×2 (08:37→20:20)
[2017-07-15] MEDS: TACROLIMUS 1 MG CAPSULE PO SCH ×2 (08:37→20:20)
[2017-07-15] MEDS: AMLODIPINE 5 MG TABLET PO SCH (08:37)
[2017-07-15] MEDS: OMEPRAZOLE 20 MG CAPSULE.DR PO SCH (08:37)
[2017-07-15] MEDS: CALCITRIOL 0.5 MCG CAPSULE PO SCH ×2 (08:37→20:19)
[2017-07-15] MEDS ORDERED: POTASSIUM CHLORIDE 10 MEQ TABLET.ER PO SCH (09:00)
[2017-07-15 13:15] VITALS: BP 122/70
[2017-07-15 19:10] VITALS: BP 100/67
[2017-07-15] MEDS: POTASSIUM CHLORIDE 10 MEQ TABLET.ER PO SCH (20:19)
[2017-07-15] MEDS: VANCOMYCIN 1,900 MG in SODIUM CHLORIDE 0.9% 250 ML IV SCH (20:19)
[2017-07-15] MEDS: ATORVASTATIN 20 MG TABLET PO SCH (20:19)
[2017-07-15] MEDS: FINASTERIDE 5 MG TABLET PO SCH (20:20)
[2017-07-15] MEDS: ENOXAPARIN 40 MG/0.4 ML SQ SCH (21:31)
[2017-07-16 04:07] VITALS: BP 107/71
[2017-07-16 04:42] LABS: HEMATOCRIT 32.5 % (39.2-51.8); HEMOGLOBIN 10.9 g/dL (13.7-18.0); WHITE BLOOD COUNT 4.4 x10^3/uL (3.4-10)
[2017-07-16 04:44] LABS: BLOOD UREA NITROGEN 9 mg/dL (7-18)
[2017-07-16 04:50] LABS: FERRITIN 389.5 ng/mL (26-388); TOTAL IRON BINDING CAPACITY 206 mcg/dL (250-450)
[2017-07-16 05:44] LABS: DIFF TOTAL CELLS COUNTED 100 CELL DIFF
[2017-07-16 05:46] LABS: POLYCHROMASIA 1+; VERIFY COUNTS? YES
[2017-07-16 07:23] VITALS: BP 122/63
[2017-07-16] MEDS ORDERED: MAGNESIUM SULFATE PMX 2GM/50ML 50 ML IV ONE (07:30)
[2017-07-16] MEDS: TACROLIMUS 1 MG CAPSULE PO SCH ×2 (07:32→21:20)
[2017-07-16] MEDS: MEROPENEM 1 GM in SODIUM CHLORIDE 0.9% 50 ML IV SCH ×2 (07:32→16:28)
[2017-07-16] MEDS: LEVOTHYROXINE 175 MCG TABLET PO SCH (07:32)
[2017-07-16] MEDS: MAGNESIUM OXIDE 400 MG TABLET PO SCH ×3 (07:32→21:19)
[2017-07-16] MEDS: CALCITRIOL 0.5 MCG CAPSULE PO SCH ×2 (07:32→21:20)
[2017-07-16] MEDS: OMEPRAZOLE 20 MG CAPSULE.DR PO SCH (07:32)
[2017-07-16] MEDS: AMLODIPINE 5 MG TABLET PO SCH (07:33)
[2017-07-16] MEDS: POTASSIUM CHLORIDE 10 MEQ TABLET.ER PO SCH ×3 (07:33→21:19)
[2017-07-16] MEDS: TAMSULOSIN 0.4 MG CAP.ER.24H PO SCH (07:33)
[2017-07-16] MEDS: ASPIRIN 81 MG TABLET EC PO SCH (07:33)
[2017-07-16] MEDS: SODIUM CHLORIDE FLUSH 10ML SYR IVF SCH ×2 (07:33→21:18)
[2017-07-16] MEDS: CHOLECALCIFEROL 1,000 UNIT TABLET PO SCH (09:31)
[2017-07-16] MEDS: CALCIUM CARBONATE 500 MG TABLET PO SCH ×3 (09:31→21:19)
[2017-07-16 13:09] VITALS: BP 106/66
[2017-07-16] MEDS ORDERED: LIDOCAINE 1%, 20ML ONE (15:41)
[2017-07-16] MEDS: VANCOMYCIN 1,900 MG in SODIUM CHLORIDE 0.9% 250 ML IV SCH (19:58)
[2017-07-16 20:00] VITALS: BP 127/76
[2017-07-16] MEDS: ATORVASTATIN 20 MG TABLET PO SCH (21:19)
[2017-07-16] MEDS: FINASTERIDE 5 MG TABLET PO SCH (21:20)
[2017-07-16] MEDS: ENOXAPARIN 40 MG/0.4 ML SQ SCH (21:20)
[2017-07-17] MEDS: MEROPENEM 1 GM in SODIUM CHLORIDE 0.9% 50 ML IV SCH ×4 (00:21→23:11)
[2017-07-17 02:00] VITALS: BP 142/78
[2017-07-17 04:25] LABS: HEMATOCRIT 33.7 % (39.2-51.8); HEMOGLOBIN 11.3 g/dL (13.7-18.0); WHITE BLOOD COUNT 4.8 x10^3/uL (3.4-10)
[2017-07-17 04:38] LABS: BLOOD UREA NITROGEN 8 mg/dL (7-18)
[2017-07-17 07:40] VITALS: BP 148/78
[2017-07-17] MEDS: MAGNESIUM OXIDE 400 MG TABLET PO SCH ×3 (08:27→17:48)
[2017-07-17] MEDS: ASPIRIN 81 MG TABLET EC PO SCH (08:28)
[2017-07-17] MEDS: SODIUM CHLORIDE FLUSH 10ML SYR IVF SCH ×2 (08:28→19:56)
[2017-07-17] MEDS: TAMSULOSIN 0.4 MG CAP.ER.24H PO SCH (08:29)
[2017-07-17] MEDS: POTASSIUM CHLORIDE 10 MEQ TABLET.ER PO SCH ×3 (08:29→19:56)
[2017-07-17] MEDS: TACROLIMUS 1 MG CAPSULE PO SCH ×2 (08:29→19:56)
[2017-07-17] MEDS: CALCIUM CARBONATE 500 MG TABLET PO SCH ×3 (08:30→19:56)
[2017-07-17] MEDS: AMLODIPINE 5 MG TABLET PO SCH (08:30)
[2017-07-17] MEDS: LEVOTHYROXINE 175 MCG TABLET PO SCH (08:31)
[2017-07-17] MEDS: OMEPRAZOLE 20 MG CAPSULE.DR PO SCH (08:31)
[2017-07-17] MEDS: CHOLECALCIFEROL 1,000 UNIT TABLET PO SCH (08:31)
[2017-07-17] MEDS: CALCITRIOL 0.5 MCG CAPSULE PO SCH ×2 (08:31→19:56)
[2017-07-17 13:52] VITALS: BP 133/68
[2017-07-17] MEDS ORDERED: BISACODYL 10 MG SUPP PR PRN (15:00)
[2017-07-17] MEDS ORDERED: DOCUSATE 100 MG CAPSULE PO PRN (15:00)
[2017-07-17] MEDS ORDERED: TEMAZEPAM 15 MG CAPSULE PO PRN (15:00)
[2017-07-17] MEDS ORDERED: POLYETHYLENE GLYCOL 17 GM PACKET PO PRN (15:00)
[2017-07-17] MEDS: VANCOMYCIN 1,900 MG in SODIUM CHLORIDE 0.9% 250 ML IV SCH (19:55)
[2017-07-17] MEDS: ENOXAPARIN 40 MG/0.4 ML SQ SCH (19:56)
[2017-07-17] MEDS: FINASTERIDE 5 MG TABLET PO SCH (19:56)
[2017-07-17] MEDS: ATORVASTATIN 20 MG TABLET PO SCH (19:56)
[2017-07-17 20:01] VITALS: BP 125/72
[2017-07-18 01:35] VITALS: BP 120/74
[2017-07-18 04:29] LABS: HEMOGLOBIN 11.8 g/dL (13.7-18.0); WHITE BLOOD COUNT 4.8 x10^3/uL (3.4-10)
[2017-07-18 04:40] LABS: BLOOD UREA NITROGEN 7 mg/dL (7-18)
[2017-07-18 06:34] VITALS: BP 129/87
[2017-07-18] MEDS: MEROPENEM 1 GM in SODIUM CHLORIDE 0.9% 50 ML IV SCH (08:41)
[2017-07-18] MEDS: OMEPRAZOLE 20 MG CAPSULE.DR PO SCH (08:42)
[2017-07-18] MEDS: MAGNESIUM OXIDE 400 MG TABLET PO SCH ×3 (08:42→16:08)
[2017-07-18] MEDS: CHOLECALCIFEROL 1,000 UNIT TABLET PO SCH (08:43)
[2017-07-18] MEDS: LEVOTHYROXINE 175 MCG TABLET PO SCH (08:44)
[2017-07-18] MEDS: TAMSULOSIN 0.4 MG CAP.ER.24H PO SCH (08:44)
[2017-07-18] MEDS: AMLODIPINE 5 MG TABLET PO SCH (08:44)
[2017-07-18] MEDS: ASPIRIN 81 MG TABLET EC PO SCH (08:44)
[2017-07-18] MEDS: POTASSIUM CHLORIDE 10 MEQ TABLET.ER PO SCH ×2 (08:45→16:08)
[2017-07-18] MEDS: SODIUM CHLORIDE FLUSH 10ML SYR IVF SCH (08:45)
[2017-07-18] MEDS: CALCIUM CARBONATE 500 MG TABLET PO SCH ×2 (08:46→16:08)
[2017-07-18] MEDS: CALCITRIOL 0.5 MCG CAPSULE PO SCH (08:46)
[2017-07-18] MEDS: TACROLIMUS 1 MG CAPSULE PO SCH (08:47)
[2017-07-18] MEDS ORDERED: LEVOFLOXACIN 500 MG TABLET PO SCH (11:00)
[2017-07-18] MEDS ORDERED: DAPTOMYCIN 600 MG in SODIUM CHLORIDE 0.9% 100 ML IVPB SCH (12:00)
[2017-07-18 12:52] VITALS: BP 135/77
== END 2017-07-18 18:30 | disposition home or self-care (01) | DRG 314 ==
LOC: ED 21:25 → EDIP 21:52 → 3NW 22:28
PROC: 05PYX3Z Removal of Infusion Device from Upper Vein, External Approach (ICD-10-PCS; principal; 2017-07-16)
DX: T80.218A Other infection due to central venous catheter, initial encounter (principal); A41.1 Sepsis due to other specified staphylococcus; K76.0 Fatty (change of) liver, not elsewhere classified; E44.1 Mild protein-calorie malnutrition; Z94.0 Kidney transplant status; B96.89 Other specified bacterial agents as the cause of diseases classified elsewhere; E83.42 Hypomagnesemia; J44.9 Chronic obstructive pulmonary disease, unspecified; N18.3 Chronic kidney disease, stage 3 (moderate); D63.1 Anemia in chronic kidney disease; B96.20 Unspecified Escherichia coli [E. coli] as the cause of diseases classified elsewhere; E78.5 Hyperlipidemia, unspecified; E83.51 Hypocalcemia; E87.6 Hypokalemia; E89.0 Postprocedural hypothyroidism; I25.10 Atherosclerotic heart disease of native coronary artery without angina pectoris; K21.9 Gastro-esophageal reflux disease without esophagitis; K63.5 Polyp of colon; N20.0 Calculus of kidney; N40.0 Benign prostatic hyperplasia without lower urinary tract symptoms; Z16.12 Extended spectrum beta lactamase (ESBL) resistance; Z79.2 Long term (current) use of antibiotics; Z85.528 Personal history of other malignant neoplasm of kidney; Z87.440 Personal history of urinary (tract) infections; Z87.442 Personal history of urinary calculi; Z87.891 Personal history of nicotine dependence; Z90.49 Acquired absence of other specified parts of digestive tract; Z90.5 Acquired absence of kidney; Z91.041 Radiographic dye allergy status; Z98.0 Intestinal bypass and anastomosis status; Z99.2 Dependence on renal dialysis; Z88.8 Allergy status to other drugs, medicaments and biological substances; Z68.31 Body mass index [BMI] 31.0-31.9, adult
CPT/HCPCS: 36415; 36589; 71020; 77001; 80048; 80053; 80069; 80202; 81001; 81003; 82306; 82330; 82550; 82728; 83540; 83550; 83605; 83735; 83970; 84100; 84145; 85025; 85610; 85651; 85730; 86140; 87040; 87077; 87086; 87150; 87186; 96365; J0878; J1650; J2185; J3370; J3490; J7507; J3475; J7030; J7050; J7512; J7517

== ENCOUNTER 2017-08-04 08:11 | Day surgery (SDC) | payer MEDICARE, OTHER ==
[~2017-08-04] VITALS: Ht 180.3 cm; Wt 97.4 kg
[~2017-08-04 08:11] MED LIST changes: +BUPIVACAINE/PF 0.25% ONE; -CINA30TA PO; +CINA30TA2 PO; +DOCU100C33 PO; -DOCU100C8 PO; +EPINEPHRINE 1 MG/ML, 1ML ONE; -LEVO125T45 PO; +LEVO125T63 PO; -LEVO175T31 PO; +LEVO175T36 PO; +OXYC5CAP2 PO; -OXYC5CAP4 PO
[2017-08-04 09:33] VITALS: BP 145/80
[2017-08-04] MEDS ORDERED: LACTATED RINGERS 1,000 ML IV SCH (09:44)
[2017-08-04 10:15] LABS: ASPARTATE AMINO TRANSFERASE 26 U/L (15-37); BLOOD UREA NITROGEN 14 mg/dL (7-18)
[2017-08-04] MEDS ORDERED: ONDANSETRON 2MG/ML, 2ML ONE (10:43)
[2017-08-04] MEDS ORDERED: PROPOFOL 10 MG/ML, 20ML ONE (10:43)
[2017-08-04] MEDS ORDERED: ROCURONIUM 10 MG/ML ONE (10:43)
[2017-08-04] MEDS ORDERED: DEXAMETHASONE 4 MG/ML, 1ML ONE (10:43)
[2017-08-04] MEDS ORDERED: SUCCINYLCHOLINE 20 MG/ML, 10ML ONE (10:43)
[2017-08-04] MEDS ORDERED: MIDAZOLAM 1 MG/ML, 2ML ONE (10:45)
[2017-08-04] MEDS ORDERED: FENTANYL PF 100 MCG/2ML ONE (10:45)
[2017-08-04] MEDS ORDERED: METOPROLOL 1 MG/ML, 5ML IV PRN (11:00)
[2017-08-04] MEDS ORDERED: hydrALAzine 20 MG/ML, 1ML IV PRN (11:00)
[2017-08-04] MEDS ORDERED: ALBUTEROL SULFATE 2.5 MG/3 ML NPPB PRN (11:00)
[2017-08-04] MEDS ORDERED: HYDROcodone/APAP 7.5-325MG/15ML UDC PO PRN (11:00)
[2017-08-04] MEDS ORDERED: ONDANSETRON 2MG/ML, 2ML IVPush PRN (11:00)
[2017-08-04] MEDS ORDERED: HYDROmorphone 1 MG/ML, 1ML IV PRN (11:00)
[2017-08-04] MEDS ORDERED: OXYcodone 5 MG/5 ML ORAL.SOL UDC PO PRN (11:00)
[2017-08-04] MEDS ORDERED: ACETAMINOPHEN 325 MG TABLET PO PRN (11:00)
[2017-08-04] MEDS ORDERED: EPHEDRINE 50 MG/ML, 1ML IVPush PRN (11:00)
[2017-08-04] MEDS ORDERED: FENTANYL PF 100 MCG/2ML IV PRN (11:00)
[2017-08-04] MEDS ORDERED: LABETALOL 5MG/ML, 20ML IV PRN (11:00)
[2017-08-04] MEDS ORDERED: BUPIVACAINE/PF 0.5% ONE (12:04)
[2017-08-04] MEDS ORDERED: OXYcodone/APAP 5/325MG TABLET ONE (13:31)
[2017-08-04] MEDS ORDERED: OXYcodone/APAP 5/325MG TABLET PO PRN (14:00)
== END 2017-08-04 13:40 ==
LOC: OUT 08:11
PROVIDERS: ATTEND Plastic Surgery
DX: C44.42 Squamous cell carcinoma of skin of scalp and neck (principal); I10 Essential (primary) hypertension; K21.9 Gastro-esophageal reflux disease without esophagitis; Z94.0 Kidney transplant status; Z88.8 Allergy status to other drugs, medicaments and biological substances
CPT/HCPCS: 15220; 36415; 80053; 88305; 88333; J0171; J0330; J1100; J2250; J2405; J2704; J3010; J3490

== ENCOUNTER → 2018-06-01 | Outpatient (CLI) | payer MEDICARE, OTHER ==
[~2018-06-01] MED LIST changes: -BUPIVACAINE/PF 0.25% ONE; -CALC0.5C PO; +CALC0.5C9 PO; -EPINEPHRINE 1 MG/ML, 1ML ONE
== END | disposition home or self-care (01) ==
LOC: CFH 09:54
PROVIDERS: ATTEND Internal Medicine Cardiovascular Disease
DX: I08.2 Rheumatic disorders of both aortic and tricuspid valves (principal); I10 Essential (primary) hypertension; I48.91 Unspecified atrial fibrillation
CPT/HCPCS: 93306

== ENCOUNTER → 2018-06-27 | Outpatient (CLI) | payer MEDICARE, OTHER | END | disposition home or self-care (01) | LOC: CFH 13:31 | PROVIDERS: ATTEND Physician Assistant | DX: K40.90 Unilateral inguinal hernia, without obstruction or gangrene, not specified as recurrent (principal) | CPT/HCPCS: 76857 ==

== ENCOUNTER 2018-07-14 06:47 | Day surgery (SDC) | payer MEDICARE, OTHER ==
[2018-07-13 11:43] LABS: ANION GAP 8 mmol/L (5-15); CALCIUM 8.1 mg/dL (8.5-10.1); CHLORIDE 109 mmol/L (98-107)
[2018-07-13 11:47] LABS: ALANINE AMINOTRANSFERASE 40 U/L (12-78); ALKALINE PHOSPHATASE 66 U/L (45-117); BILIRUBIN,TOTAL 0.6 mg/dL (0.2-1.0); CREATININE 1.36 mg/dL (0.7-1.3); TOTAL PROTEIN 7.2 g/dL (6.4-8.2)
[~2018-07-14] VITALS: Ht 177.8 cm; Wt 93.1 kg
[~2018-07-14 06:47] MED LIST changes: +FURO20TA3 PO
[2018-07-14] MEDS ORDERED: BUPIVACAINE/PF 0.5% ONE (06:53)
[2018-07-14] MEDS ORDERED: EPINEPHRINE 1 MG/ML, 1ML ONE (06:53)
[2018-07-14] MEDS ORDERED: LACTATED RINGERS 1,000 ML IV SCH ×2 (07:17→10:21)
[2018-07-14 07:20] VITALS: BP 123/77
[2018-07-14] MEDS ORDERED: OxyconTIN ER 10 MG TAB.ER PO ONE (07:30)
[2018-07-14] MEDS ORDERED: GABAPENTIN 300 MG CAPSULE PO ONE (07:30)
[2018-07-14] MEDS ORDERED: ACETAMINOPHEN 500 MG TABLET PO ONE (07:30)
[2018-07-14] MEDS ORDERED: SODIUM CHLORIDE 0.9% 1,000 ML IV SCH (07:37)
[2018-07-14] MEDS ORDERED: MIDAZOLAM 1 MG/ML, 2ML ONE (08:36)
[2018-07-14] MEDS ORDERED: PROPOFOL 10 MG/ML, 20ML ONE (08:37)
[2018-07-14] MEDS ORDERED: FENTANYL PF 250 MCG/5ML ONE (08:37)
[2018-07-14] MEDS ORDERED: ROCURONIUM 10MG/ML,5ML ONE (08:38)
[2018-07-14] MEDS ORDERED: NEOSTIGMINE 1 MG/ML, 10ML ONE (08:38)
[2018-07-14] MEDS ORDERED: GLYCOPYRROLATE 0.4 MG/2 ML, 2ML ONE (08:38)
[2018-07-14] MEDS ORDERED: CEFAZOLIN 1,000 MG ONE ×2 (08:39)
[2018-07-14] MEDS ORDERED: WATER-INJECTION,STERILE 10 ML IV ONE (08:39)
[2018-07-14] MEDS ORDERED: FENTANYL PF 100 MCG/2ML IV PRN (09:00)
[2018-07-14] MEDS ORDERED: ONDANSETRON ODT 8 MG PO PRN (09:00)
[2018-07-14] MEDS ORDERED: ONDANSETRON 2MG/ML, 2ML IV PRN (09:00)
[2018-07-14] MEDS ORDERED: PROMETHAZINE 25 MG/ML, 1ML IV PRN (09:00)
[2018-07-14] MEDS ORDERED: PROMETHAZINE 25 MG SUPP PR PRN (09:00)
[2018-07-14] MEDS ORDERED: MORPHINE SULFATE 4 MG/ML, 1ML IVPush PRN (09:00)
[2018-07-14] MEDS ORDERED: PROMETHAZINE 12.5 MG SUPP PR PRN (09:00)
[2018-07-14] MEDS ORDERED: MEPERIDINE/PF 25MG/0.5ML IVPush PRN (09:00)
[2018-07-14] MEDS ORDERED: hydrALAzine 20 MG/ML, 1ML IV PRN (09:00)
[2018-07-14] MEDS ORDERED: HYDROmorphone 1 MG/ML, 1ML IV PRN (09:00)
[2018-07-14] MEDS ORDERED: OXYcodone 5 MG/5 ML ORAL.SOL UDC PO PRN (09:00)
[2018-07-14] MEDS ORDERED: LABETALOL 5MG/ML, 20ML IV PRN (09:00)
[2018-07-14] MEDS ORDERED: ALBUTEROL SULFATE 2.5 MG/3 ML NPPB PRN (09:00)
[2018-07-14] MEDS ORDERED: HYDROCORTISONE 100 MG INJ. ONE (09:04)
[2018-07-14] MEDS ORDERED: morphine SULFATE 10 MG/ML, 1ML IVPush PRN (10:30)
[2018-07-14] MEDS ORDERED: ONDANSETRON 2MG/ML, 2ML IVPush PRN (10:30)
== END 2018-07-14 17:05 | disposition home or self-care (01) ==
LOC: OUT 06:47
PROVIDERS: ATTEND Surgery
DX: K40.90 Unilateral inguinal hernia, without obstruction or gangrene, not specified as recurrent (principal); I10 Essential (primary) hypertension; E78.00 Pure hypercholesterolemia, unspecified; I48.91 Unspecified atrial fibrillation; K21.9 Gastro-esophageal reflux disease without esophagitis; I35.1 Nonrheumatic aortic (valve) insufficiency; Z79.82 Long term (current) use of aspirin; Z87.891 Personal history of nicotine dependence; Z79.899 Other long term (current) drug therapy; Z88.8 Allergy status to other drugs, medicaments and biological substances; Z91.041 Radiographic dye allergy status; Z85.828 Personal history of other malignant neoplasm of skin; Z85.528 Personal history of other malignant neoplasm of kidney; Z94.0 Kidney transplant status
CPT/HCPCS: 36415; 49505; 80053; 93005; C1781; J0171; J0690; J1720; J2250; J2704; J2710; J3010; J3490

== ENCOUNTER 2019-04-02 10:56 | Outpatient (CLI) | payer MEDICARE, OTHER ==
[~2019-04-02 10:56] MED LIST changes: +AMLO-150 PO; -AMLO5TAB2 PO; -ASPI-621 PO; +ASPI81TA45 PO; -MIDO5TAB PO; +MIDO5TAB9 PO
== END 2019-04-02 23:59 | disposition home or self-care (01) ==
LOC: CFH 10:56
PROVIDERS: ATTEND Family Medicine
DX: M41.85 Other forms of scoliosis, thoracolumbar region (principal); M47.815 Spondylosis without myelopathy or radiculopathy, thoracolumbar region; M48.061 Spinal stenosis, lumbar region without neurogenic claudication
CPT/HCPCS: 72072; 72100

== ENCOUNTER → 2019-05-28 | Outpatient (CLI) | payer MEDICARE, OTHER | END | disposition home or self-care (01) | LOC: CFH 12:31 | PROVIDERS: ATTEND Internal Medicine Cardiovascular Disease | DX: I08.8 Other rheumatic multiple valve diseases (principal); I12.9 Hypertensive chronic kidney disease with stage 1 through stage 4 chronic kidney disease, or unspecified chronic kidney disease; N18.9 Chronic kidney disease, unspecified | CPT/HCPCS: 93306 ==

== ENCOUNTER 2019-07-03 22:39 | Emergency (ER) | payer MEDICARE, OTHER ==
[~2019-07-03] VITALS: Ht 180.3 cm; Wt 89.5 kg
[2019-07-03 22:42] VITALS: BP 112/72
== END 2019-07-03 23:21 | disposition home or self-care (01) ==
LOC: ED 23:06
DX: L24.9 Irritant contact dermatitis, unspecified cause (principal); M19.90 Unspecified osteoarthritis, unspecified site; I10 Essential (primary) hypertension; Z87.891 Personal history of nicotine dependence
CPT/HCPCS: 99283; Q0163

== ENCOUNTER 2019-07-04 19:30 | Inpatient (IN) | payer MEDICARE, OTHER ==
[~2019-07-04] VITALS: Ht 180.3 cm; Wt 97.0 kg
[2019-07-09 15:37] VITALS: BP 121/72
== END 2019-07-09 18:00 | disposition home or self-care (01) | DRG 871 ==
LOC: ED 21:41 → EDIP 21:46 → ED 22:01 → 3NE 23:07
PROVIDERS: ADMIT Internal Medicine; ATTEND Internal Medicine
PROC: 0JH63XZ Insertion of Tunneled Vascular Access Device into Chest Subcutaneous Tissue and Fascia, Percutaneous Approach (ICD-10-PCS; principal; 2019-07-09)
PROC: 02HV33Z Insertion of Infusion Device into Superior Vena Cava, Percutaneous Approach (ICD-10-PCS; 2019-07-09)
PROC: B5181ZA Fluoroscopy of Superior Vena Cava using Low Osmolar Contrast, Guidance (ICD-10-PCS; 2019-07-09)
PROC: B548ZZA Ultrasonography of Superior Vena Cava, Guidance (ICD-10-PCS; 2019-07-09)
DX: A41.51 Sepsis due to Escherichia coli [E. coli] (principal); N17.0 Acute kidney failure with tubular necrosis; K56.7 Ileus, unspecified; I12.0 Hypertensive chronic kidney disease with stage 5 chronic kidney disease or end stage renal disease; D84.9 Immunodeficiency, unspecified; N10 Acute pyelonephritis; N25.81 Secondary hyperparathyroidism of renal origin; T86.19 Other complication of kidney transplant; Z88.8 Allergy status to other drugs, medicaments and biological substances; D35.01 Benign neoplasm of right adrenal gland; D63.1 Anemia in chronic kidney disease; E78.5 Hyperlipidemia, unspecified; E83.42 Hypomagnesemia; E83.51 Hypocalcemia; E87.6 Hypokalemia; E89.0 Postprocedural hypothyroidism; I25.10 Atherosclerotic heart disease of native coronary artery without angina pectoris; I48.91 Unspecified atrial fibrillation; J44.9 Chronic obstructive pulmonary disease, unspecified; K21.9 Gastro-esophageal reflux disease without esophagitis; K76.0 Fatty (change of) liver, not elsewhere classified; L29.9 Pruritus, unspecified; N40.0 Benign prostatic hyperplasia without lower urinary tract symptoms; Y83.0 Surgical operation with transplant of whole organ as the cause of abnormal reaction of the patient, or of later complication, without mention of misadventure at the time of the procedure; Z78.9 Other specified health status; Z79.01 Long term (current) use of anticoagulants; Z85.828 Personal history of other malignant neoplasm of skin; Z86.010 Personal history of colon polyps; Z86.19 Personal history of other infectious and parasitic diseases; Z87.440 Personal history of urinary (tract) infections; Z87.442 Personal history of urinary calculi; Z87.891 Personal history of nicotine dependence; Z90.5 Acquired absence of kidney; Z95.0 Presence of cardiac pacemaker; Z98.0 Intestinal bypass and anastomosis status; Y92.89 Other specified places as the place of occurrence of the external cause; Z85.528 Personal history of other malignant neoplasm of kidney
CPT/HCPCS: 36415; 36558; 74176; 77001; 80048; 80053; 80061; 80197; 81001; 83036; 83605; 83735; 84100; 84145; 84439; 84443; 85025; 85651; 86140; 87040; 87077; 87086; 87186; 99156; 99157; G0378; J0696; J0878; J1335; J1644; J2185; J2250; J3010; J3480; J7507; C1751; J3475; J7030; J7040; J7512; J7517; Q0163

== ENCOUNTER 2019-10-05 06:00 | Day surgery (SDC) | payer MEDICARE, OTHER ==
[~2019-10-05] VITALS: Ht 180.3 cm; Wt 86.4 kg
[~2019-10-05 06:00] MED LIST changes: -CALC667T PO; +CALC667T4 PO; +ERTA1VIA IVPB; +MAGN400T50 PO; +OXYC1TAB8 PO
[2019-10-05 06:21] VITALS: BP 126/69
[2019-10-05] MEDS ORDERED: APIX5TAB PO (06:37)
[2019-10-05] MEDS ORDERED: EVER0.75 PO (06:37)
[2019-10-05] MEDS ORDERED: MULT-249 PO (06:38)
[2019-10-05 07:25] LABS: ANION GAP 8 mmol/L (5-15); CALCIUM 7.5 mg/dL (8.5-10.1); CHLORIDE 116 mmol/L (98-107); CREATININE 1.48 mg/dL (0.7-1.3)
[2019-10-05] MEDS ORDERED: PROPOFOL 10 MG/ML, 20ML ONE (07:27)
[2019-10-05] MEDS ORDERED: POTASSIUM CHLORIDE 20 MEQ TAB.ER.PRT PO ONE (08:00)
== END 2019-10-05 09:15 | disposition home or self-care (01) ==
LOC: CACL 06:00
PROVIDERS: ATTEND Internal Medicine Cardiovascular Disease
DX: I48.0 Paroxysmal atrial fibrillation (principal); I44.1 Atrioventricular block, second degree; I35.1 Nonrheumatic aortic (valve) insufficiency; I10 Essential (primary) hypertension; E78.5 Hyperlipidemia, unspecified; E03.9 Hypothyroidism, unspecified; Z79.01 Long term (current) use of anticoagulants; Z79.890 Hormone replacement therapy; Z79.891 Long term (current) use of opiate analgesic; Z79.899 Other long term (current) drug therapy; Z91.041 Radiographic dye allergy status; Z94.0 Kidney transplant status
CPT/HCPCS: 36415; 80048; 92960; 93005; J2704

== ENCOUNTER → 2020-04-16 | Outpatient (CLI) | payer MEDICARE ==
[~2020-04-16] MED LIST changes: +APIX5TAB PO; +EVER0.75 PO; +MULT-249 PO; -OMEP20CA14 PO; +OMEP20CA20 PO; -TACR1CAP4 PO; +TACR1CAP5 PO
== END | disposition home or self-care (01) ==
LOC: CFH 08:15
PROVIDERS: ATTEND Internal Medicine Hematology & Oncology
DX: C44.42 Squamous cell carcinoma of skin of scalp and neck (principal); R60.0 Localized edema
CPT/HCPCS: 93970

== ENCOUNTER → 2020-08-14 | Outpatient (CLI) | payer MEDICARE, OTHER | END | disposition home or self-care (01) | LOC: CVU 09:40 | PROVIDERS: ATTEND Internal Medicine Cardiovascular Disease | DX: I08.3 Combined rheumatic disorders of mitral, aortic and tricuspid valves (principal); I48.91 Unspecified atrial fibrillation | CPT/HCPCS: 93306 ==

== ENCOUNTER 2021-05-23 08:17 | Emergency (ER) | payer MEDICARE, OTHER ==
[~2021-05-23] VITALS: Ht 180.3 cm; Wt 79.8 kg
--- NOTE | 2021-05-23 09:05 | NUR ---
assumed care of pt. 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 pt reports that he has been given steroid cream and PO ABX for treatment, bt they have been unsuccessful. pt has large wound about 2 inches long behind his ear with green drainage. pt reports that the wound was swabbed recenty and that the results were "inconclusive". pt states thta he leans the wound every day in the shower with soap and water and that it is vrey painful pt at bedside
--- NOTE | 2021-05-23 09:35 | NUR ---
Dr. Stevens has been to bedside for eval. wound swabbed xeroform dressing and gauze placed to wound per MD. wound care and dressing change information given to patient and at bedside. no drainage noted at this time
[2021-05-23 09:46] VITALS: BP 136/72
== END 2021-05-23 09:50 | disposition home or self-care (01) ==
LOC: ED 09:42
DX: Z48.01 Encounter for change or removal of surgical wound dressing (principal); I10 Essential (primary) hypertension; Z90.49 Acquired absence of other specified parts of digestive tract
CPT/HCPCS: 87070; 87077; 87186; 87205; 99282; 99283

== ENCOUNTER 2021-05-27 09:36 | Outpatient (CLI) | payer MEDICARE | END 2021-05-27 23:59 | disposition home or self-care (01) | LOC: WOUND 09:36 | PROVIDERS: ATTEND Internal Medicine | DX: L59.8 Other specified disorders of the skin and subcutaneous tissue related to radiation (principal); S01.302A Unspecified open wound of left ear, initial encounter; L89.819 Pressure ulcer of head, unspecified stage; T86.10 Unspecified complication of kidney transplant; L58.9 Radiodermatitis, unspecified; I48.11 Longstanding persistent atrial fibrillation; I12.9 Hypertensive chronic kidney disease with stage 1 through stage 4 chronic kidney disease, or unspecified chronic kidney disease; N18.9 Chronic kidney disease, unspecified; D63.1 Anemia in chronic kidney disease; N40.0 Benign prostatic hyperplasia without lower urinary tract symptoms; K58.9 Irritable bowel syndrome, unspecified; Z85.828 Personal history of other malignant neoplasm of skin; Z87.891 Personal history of nicotine dependence; Z79.01 Long term (current) use of anticoagulants; Z98.890 Other specified postprocedural states; Z99.2 Dependence on renal dialysis; Z90.89 Acquired absence of other organs; Z90.49 Acquired absence of other specified parts of digestive tract; Y84.2 Radiological procedure and radiotherapy as the cause of abnormal reaction of the patient, or of later complication, without mention of misadventure at the time of the procedure; X58.XXXA Exposure to other specified factors, initial encounter; Y92.238 Other place in hospital as the place of occurrence of the external cause; Y83.8 Other surgical procedures as the cause of abnormal reaction of the patient, or of later complication, without mention of misadventure at the time of the procedure; Y93.89 Activity, other specified; Y92.89 Other specified places as the place of occurrence of the external cause; Y99.8 Other external cause status | CPT/HCPCS: 11042; G0463 ==

== ENCOUNTER → 2021-05-27 | Outpatient (CLI) | payer MEDICARE | END | disposition home or self-care (01) | LOC: CFH 11:48 | PROVIDERS: ATTEND Internal Medicine | DX: L57.9 Skin changes due to chronic exposure to nonionizing radiation, unspecified (principal) | CPT/HCPCS: 71046 ==

== ENCOUNTER → 2021-06-03 | Outpatient (CLI) | payer MEDICARE | END | disposition home or self-care (01) | LOC: WOUND 14:04 | PROVIDERS: ATTEND Internal Medicine | DX: L59.8 Other specified disorders of the skin and subcutaneous tissue related to radiation (principal); L58.9 Radiodermatitis, unspecified; S01.302D Unspecified open wound of left ear, subsequent encounter; T86.10 Unspecified complication of kidney transplant; I48.11 Longstanding persistent atrial fibrillation; N40.0 Benign prostatic hyperplasia without lower urinary tract symptoms; I48.91 Unspecified atrial fibrillation; I12.9 Hypertensive chronic kidney disease with stage 1 through stage 4 chronic kidney disease, or unspecified chronic kidney disease; D63.1 Anemia in chronic kidney disease; N18.9 Chronic kidney disease, unspecified; K58.9 Irritable bowel syndrome, unspecified; Z99.2 Dependence on renal dialysis; Z79.01 Long term (current) use of anticoagulants; L89.819 Pressure ulcer of head, unspecified stage; Z85.828 Personal history of other malignant neoplasm of skin; Z87.891 Personal history of nicotine dependence; Z90.49 Acquired absence of other specified parts of digestive tract; Z94.0 Kidney transplant status; X58.XXXD Exposure to other specified factors, subsequent encounter; Y84.2 Radiological procedure and radiotherapy as the cause of abnormal reaction of the patient, or of later complication, without mention of misadventure at the time of the procedure | CPT/HCPCS: 97597 ==

== ENCOUNTER 2021-06-10 12:22 | Outpatient (CLI) | payer MEDICARE | END 2021-06-10 23:59 | disposition home or self-care (01) | LOC: WOUND 12:22 | PROVIDERS: ATTEND Internal Medicine | DX: L59.8 Other specified disorders of the skin and subcutaneous tissue related to radiation (principal); L58.9 Radiodermatitis, unspecified; S01.302D Unspecified open wound of left ear, subsequent encounter; T86.10 Unspecified complication of kidney transplant; I48.11 Longstanding persistent atrial fibrillation; N40.0 Benign prostatic hyperplasia without lower urinary tract symptoms; I12.9 Hypertensive chronic kidney disease with stage 1 through stage 4 chronic kidney disease, or unspecified chronic kidney disease; D63.1 Anemia in chronic kidney disease; N18.9 Chronic kidney disease, unspecified; K58.9 Irritable bowel syndrome, unspecified; Z99.2 Dependence on renal dialysis; Z79.01 Long term (current) use of anticoagulants; Z85.828 Personal history of other malignant neoplasm of skin; Z87.891 Personal history of nicotine dependence; Z90.49 Acquired absence of other specified parts of digestive tract; X58.XXXD Exposure to other specified factors, subsequent encounter; Y84.2 Radiological procedure and radiotherapy as the cause of abnormal reaction of the patient, or of later complication, without mention of misadventure at the time of the procedure | CPT/HCPCS: 97597 ==

== ENCOUNTER 2021-06-17 12:33 | Outpatient (CLI) | payer MEDICARE | END 2021-06-17 23:59 | disposition home or self-care (01) | LOC: WOUND 12:33 | PROVIDERS: ATTEND Internal Medicine | DX: S01.302D Unspecified open wound of left ear, subsequent encounter (principal); L59.8 Other specified disorders of the skin and subcutaneous tissue related to radiation; L58.9 Radiodermatitis, unspecified; T86.10 Unspecified complication of kidney transplant; I48.11 Longstanding persistent atrial fibrillation; D63.1 Anemia in chronic kidney disease; I48.91 Unspecified atrial fibrillation; N18.9 Chronic kidney disease, unspecified; N40.0 Benign prostatic hyperplasia without lower urinary tract symptoms; K58.9 Irritable bowel syndrome, unspecified; Z79.01 Long term (current) use of anticoagulants; Z99.2 Dependence on renal dialysis; Z85.828 Personal history of other malignant neoplasm of skin; Z94.0 Kidney transplant status; Z87.891 Personal history of nicotine dependence; Z90.5 Acquired absence of kidney; Z90.89 Acquired absence of other organs; Z98.890 Other specified postprocedural states; Y84.2 Radiological procedure and radiotherapy as the cause of abnormal reaction of the patient, or of later complication, without mention of misadventure at the time of the procedure; X58.XXXD Exposure to other specified factors, subsequent encounter | CPT/HCPCS: 97597 ==

== ENCOUNTER → 2021-06-24 | Outpatient (CLI) | payer MEDICARE | END | disposition home or self-care (01) | LOC: WOUND 12:18 | PROVIDERS: ATTEND Internal Medicine | DX: L59.8 Other specified disorders of the skin and subcutaneous tissue related to radiation (principal); L58.9 Radiodermatitis, unspecified; S01.302D Unspecified open wound of left ear, subsequent encounter; T86.10 Unspecified complication of kidney transplant; I48.11 Longstanding persistent atrial fibrillation; N40.0 Benign prostatic hyperplasia without lower urinary tract symptoms; I12.9 Hypertensive chronic kidney disease with stage 1 through stage 4 chronic kidney disease, or unspecified chronic kidney disease; D63.1 Anemia in chronic kidney disease; N18.9 Chronic kidney disease, unspecified; K58.9 Irritable bowel syndrome, unspecified; Z99.2 Dependence on renal dialysis; Z79.01 Long term (current) use of anticoagulants; Z85.828 Personal history of other malignant neoplasm of skin; Z87.891 Personal history of nicotine dependence; Z90.49 Acquired absence of other specified parts of digestive tract; X58.XXXD Exposure to other specified factors, subsequent encounter | CPT/HCPCS: 97597 ==

== ENCOUNTER 2021-07-01 13:01 | Outpatient (CLI) | payer MEDICARE | END 2021-07-01 23:59 | disposition home or self-care (01) | LOC: WOUND 13:01 | PROVIDERS: ATTEND Internal Medicine | DX: L59.8 Other specified disorders of the skin and subcutaneous tissue related to radiation (principal); S01.302D Unspecified open wound of left ear, subsequent encounter; L89.819 Pressure ulcer of head, unspecified stage; T86.10 Unspecified complication of kidney transplant; I48.11 Longstanding persistent atrial fibrillation; I12.9 Hypertensive chronic kidney disease with stage 1 through stage 4 chronic kidney disease, or unspecified chronic kidney disease; N18.9 Chronic kidney disease, unspecified; D63.1 Anemia in chronic kidney disease; N40.0 Benign prostatic hyperplasia without lower urinary tract symptoms; K58.9 Irritable bowel syndrome, unspecified; Z85.828 Personal history of other malignant neoplasm of skin; Z87.891 Personal history of nicotine dependence; Z79.01 Long term (current) use of anticoagulants; Z98.890 Other specified postprocedural states; Z99.2 Dependence on renal dialysis; Z90.89 Acquired absence of other organs; Y84.2 Radiological procedure and radiotherapy as the cause of abnormal reaction of the patient, or of later complication, without mention of misadventure at the time of the procedure; X58.XXXD Exposure to other specified factors, subsequent encounter; Y83.8 Other surgical procedures as the cause of abnormal reaction of the patient, or of later complication, without mention of misadventure at the time of the procedure | CPT/HCPCS: 97597 ==

== ENCOUNTER 2021-07-08 12:45 | Outpatient (CLI) | payer MEDICARE | END 2021-07-08 23:59 | disposition home or self-care (01) | LOC: WOUND 12:45 | PROVIDERS: ATTEND Internal Medicine | DX: L59.8 Other specified disorders of the skin and subcutaneous tissue related to radiation (principal); S01.302D Unspecified open wound of left ear, subsequent encounter; L89.819 Pressure ulcer of head, unspecified stage; T86.10 Unspecified complication of kidney transplant; I48.11 Longstanding persistent atrial fibrillation; I12.9 Hypertensive chronic kidney disease with stage 1 through stage 4 chronic kidney disease, or unspecified chronic kidney disease; N18.9 Chronic kidney disease, unspecified; D63.1 Anemia in chronic kidney disease; N40.0 Benign prostatic hyperplasia without lower urinary tract symptoms; K58.9 Irritable bowel syndrome, unspecified; Z85.828 Personal history of other malignant neoplasm of skin; Z87.891 Personal history of nicotine dependence; Z79.01 Long term (current) use of anticoagulants; Z98.890 Other specified postprocedural states; Z99.2 Dependence on renal dialysis; Z90.89 Acquired absence of other organs; Y84.2 Radiological procedure and radiotherapy as the cause of abnormal reaction of the patient, or of later complication, without mention of misadventure at the time of the procedure; X58.XXXD Exposure to other specified factors, subsequent encounter; Y83.8 Other surgical procedures as the cause of abnormal reaction of the patient, or of later complication, without mention of misadventure at the time of the procedure | CPT/HCPCS: 97597 ==

== ENCOUNTER → 2021-07-15 | Outpatient (CLI) | payer MEDICARE | END | disposition home or self-care (01) | LOC: WOUND 14:47 | PROVIDERS: ATTEND Internal Medicine | DX: L59.8 Other specified disorders of the skin and subcutaneous tissue related to radiation (principal); S01.302D Unspecified open wound of left ear, subsequent encounter; T86.10 Unspecified complication of kidney transplant; L58.9 Radiodermatitis, unspecified; I48.11 Longstanding persistent atrial fibrillation; I12.9 Hypertensive chronic kidney disease with stage 1 through stage 4 chronic kidney disease, or unspecified chronic kidney disease; N18.9 Chronic kidney disease, unspecified; D63.1 Anemia in chronic kidney disease; N40.0 Benign prostatic hyperplasia without lower urinary tract symptoms; K58.9 Irritable bowel syndrome, unspecified; Z85.828 Personal history of other malignant neoplasm of skin; Z87.891 Personal history of nicotine dependence; Z79.01 Long term (current) use of anticoagulants; Z98.890 Other specified postprocedural states; Z99.2 Dependence on renal dialysis; Z90.89 Acquired absence of other organs; Z90.49 Acquired absence of other specified parts of digestive tract; Y84.2 Radiological procedure and radiotherapy as the cause of abnormal reaction of the patient, or of later complication, without mention of misadventure at the time of the procedure; X58.XXXD Exposure to other specified factors, subsequent encounter; Y83.8 Other surgical procedures as the cause of abnormal reaction of the patient, or of later complication, without mention of misadventure at the time of the procedure | CPT/HCPCS: 97597 ==

== ENCOUNTER 2021-07-22 11:38 | Outpatient (CLI) | payer MEDICARE | END 2021-07-22 23:59 | disposition home or self-care (01) | LOC: WOUND 11:38 | PROVIDERS: ATTEND Internal Medicine | DX: L59.8 Other specified disorders of the skin and subcutaneous tissue related to radiation (principal); S01.302D Unspecified open wound of left ear, subsequent encounter; T86.10 Unspecified complication of kidney transplant; L58.9 Radiodermatitis, unspecified; I48.11 Longstanding persistent atrial fibrillation; I12.9 Hypertensive chronic kidney disease with stage 1 through stage 4 chronic kidney disease, or unspecified chronic kidney disease; N18.9 Chronic kidney disease, unspecified; D63.1 Anemia in chronic kidney disease; N40.0 Benign prostatic hyperplasia without lower urinary tract symptoms; K58.9 Irritable bowel syndrome, unspecified; Z85.828 Personal history of other malignant neoplasm of skin; Z87.891 Personal history of nicotine dependence; Z79.01 Long term (current) use of anticoagulants; Z98.890 Other specified postprocedural states; Z99.2 Dependence on renal dialysis; Z90.89 Acquired absence of other organs; Y84.2 Radiological procedure and radiotherapy as the cause of abnormal reaction of the patient, or of later complication, without mention of misadventure at the time of the procedure; Y83.8 Other surgical procedures as the cause of abnormal reaction of the patient, or of later complication, without mention of misadventure at the time of the procedure; X58.XXXD Exposure to other specified factors, subsequent encounter | CPT/HCPCS: 97597 ==

== ENCOUNTER 2021-07-29 12:41 | Outpatient (CLI) | payer MEDICARE ==
[~2021-07-29 12:41] MED LIST changes: +POTA-138 PO; -POTA10TA12 PO
== END 2021-07-29 23:59 | disposition home or self-care (01) ==
LOC: WOUND 12:41
PROVIDERS: ATTEND Internal Medicine
DX: L59.8 Other specified disorders of the skin and subcutaneous tissue related to radiation (principal); S01.302D Unspecified open wound of left ear, subsequent encounter; T86.10 Unspecified complication of kidney transplant; L58.9 Radiodermatitis, unspecified; I48.11 Longstanding persistent atrial fibrillation; I12.9 Hypertensive chronic kidney disease with stage 1 through stage 4 chronic kidney disease, or unspecified chronic kidney disease; N18.9 Chronic kidney disease, unspecified; D63.1 Anemia in chronic kidney disease; N40.0 Benign prostatic hyperplasia without lower urinary tract symptoms; K58.9 Irritable bowel syndrome, unspecified; Z85.828 Personal history of other malignant neoplasm of skin; Z87.891 Personal history of nicotine dependence; Z79.01 Long term (current) use of anticoagulants; Z98.890 Other specified postprocedural states; Z99.2 Dependence on renal dialysis; Z90.49 Acquired absence of other specified parts of digestive tract; Z90.89 Acquired absence of other organs; Y84.2 Radiological procedure and radiotherapy as the cause of abnormal reaction of the patient, or of later complication, without mention of misadventure at the time of the procedure; Y83.8 Other surgical procedures as the cause of abnormal reaction of the patient, or of later complication, without mention of misadventure at the time of the procedure; X58.XXXD Exposure to other specified factors, subsequent encounter
CPT/HCPCS: 97597

== ENCOUNTER 2021-08-05 12:42 | Outpatient (CLI) | payer MEDICARE, OTHER | END 2021-08-05 23:59 | disposition home or self-care (01) | LOC: WOUND 12:42 | PROVIDERS: ATTEND Internal Medicine | DX: L59.8 Other specified disorders of the skin and subcutaneous tissue related to radiation (principal); S01.302D Unspecified open wound of left ear, subsequent encounter; T86.10 Unspecified complication of kidney transplant; L58.9 Radiodermatitis, unspecified; I48.11 Longstanding persistent atrial fibrillation; I12.9 Hypertensive chronic kidney disease with stage 1 through stage 4 chronic kidney disease, or unspecified chronic kidney disease; N18.9 Chronic kidney disease, unspecified; D63.1 Anemia in chronic kidney disease; N40.0 Benign prostatic hyperplasia without lower urinary tract symptoms; K58.9 Irritable bowel syndrome, unspecified; Z85.828 Personal history of other malignant neoplasm of skin; Z87.891 Personal history of nicotine dependence; Z79.01 Long term (current) use of anticoagulants; Z98.890 Other specified postprocedural states; Z99.2 Dependence on renal dialysis; Z90.49 Acquired absence of other specified parts of digestive tract; Z90.89 Acquired absence of other organs; Y84.2 Radiological procedure and radiotherapy as the cause of abnormal reaction of the patient, or of later complication, without mention of misadventure at the time of the procedure; Y83.8 Other surgical procedures as the cause of abnormal reaction of the patient, or of later complication, without mention of misadventure at the time of the procedure; X58.XXXD Exposure to other specified factors, subsequent encounter | CPT/HCPCS: 97597 ==

== ENCOUNTER 2021-08-12 14:45 | Outpatient (CLI) | payer MEDICARE, OTHER | END 2021-08-12 23:59 | disposition home or self-care (01) | LOC: WOUND 14:45 | PROVIDERS: ATTEND Internal Medicine Cardiovascular Disease | DX: L59.8 Other specified disorders of the skin and subcutaneous tissue related to radiation (principal); S01.302D Unspecified open wound of left ear, subsequent encounter; T86.10 Unspecified complication of kidney transplant; L58.9 Radiodermatitis, unspecified; I48.11 Longstanding persistent atrial fibrillation; I12.9 Hypertensive chronic kidney disease with stage 1 through stage 4 chronic kidney disease, or unspecified chronic kidney disease; N18.9 Chronic kidney disease, unspecified; D63.1 Anemia in chronic kidney disease; N40.0 Benign prostatic hyperplasia without lower urinary tract symptoms; K58.9 Irritable bowel syndrome, unspecified; Z85.828 Personal history of other malignant neoplasm of skin; Z87.891 Personal history of nicotine dependence; Z79.01 Long term (current) use of anticoagulants; Z98.890 Other specified postprocedural states; Z99.2 Dependence on renal dialysis; Z90.49 Acquired absence of other specified parts of digestive tract; Z90.89 Acquired absence of other organs; Y84.2 Radiological procedure and radiotherapy as the cause of abnormal reaction of the patient, or of later complication, without mention of misadventure at the time of the procedure; Y83.8 Other surgical procedures as the cause of abnormal reaction of the patient, or of later complication, without mention of misadventure at the time of the procedure; X58.XXXD Exposure to other specified factors, subsequent encounter | CPT/HCPCS: 97602 ==

== ENCOUNTER → 2021-08-19 | Outpatient (CLI) | payer MEDICARE | END | disposition home or self-care (01) | LOC: WOUND 15:38 | PROVIDERS: ATTEND Internal Medicine | DX: L59.8 Other specified disorders of the skin and subcutaneous tissue related to radiation (principal); S01.302D Unspecified open wound of left ear, subsequent encounter; T86.10 Unspecified complication of kidney transplant; L58.9 Radiodermatitis, unspecified; I48.11 Longstanding persistent atrial fibrillation; I12.9 Hypertensive chronic kidney disease with stage 1 through stage 4 chronic kidney disease, or unspecified chronic kidney disease; N18.9 Chronic kidney disease, unspecified; D63.1 Anemia in chronic kidney disease; N40.0 Benign prostatic hyperplasia without lower urinary tract symptoms; K58.9 Irritable bowel syndrome, unspecified; Z85.828 Personal history of other malignant neoplasm of skin; Z87.891 Personal history of nicotine dependence; Z79.01 Long term (current) use of anticoagulants; Z98.890 Other specified postprocedural states; Z99.2 Dependence on renal dialysis; Z90.49 Acquired absence of other specified parts of digestive tract; Z90.89 Acquired absence of other organs; Y84.2 Radiological procedure and radiotherapy as the cause of abnormal reaction of the patient, or of later complication, without mention of misadventure at the time of the procedure; Y83.8 Other surgical procedures as the cause of abnormal reaction of the patient, or of later complication, without mention of misadventure at the time of the procedure; X58.XXXD Exposure to other specified factors, subsequent encounter | CPT/HCPCS: 97597 ==

== ENCOUNTER 2021-08-22 12:59 | Emergency (ER) | payer MEDICARE ==
[~2021-08-22] VITALS: Ht 177.8 cm; Wt 78.0 kg
[2021-08-22] MEDS ORDERED: ONDANSETRON 2MG/ML, 2ML ONE (13:24)
[2021-08-22] MEDS ORDERED: MORPHINE SULFATE 4 MG/ML, 1ML ONE ×3 (13:25→15:38)
[2021-08-22] MEDS ORDERED: ONDANSETRON 2MG/ML, 2ML IVPush ONE (13:30)
[2021-08-22] MEDS ORDERED: PLEASE ENTER HEIGHT AND WEIGHT MC SCH (13:30)
[2021-08-22] MEDS ORDERED: BACITRACIN ZINC OINT 500U/GM, 0.9 GM ONE (13:30)
--- NOTE | 2021-08-22 13:38 | NUR ---
[facility] FROM [facility] WHERE PATIENT HAD MECHANICAL GLF. FELL ONTO BOTH WRISTS AND RIGHT CHEST. MAY HAVE BRIEFLY HIT HEAD -NEGATIVE LOC -ON ELIQUIS FOR AFIB -RIGHT WRIST SLIGHTLY DEFORMED-SPLINTED EN ROUTE BY EMS HX OF KIDNEY TRANSPLANT, RECEIVING CHEMO/RADIATION FOR SKIN CANCER
[2021-08-22] MEDS: MORPHINE SULFATE 4 MG/ML, 1ML IVPush PRN ×2 (13:43→13:48)
[2021-08-22] MEDS ORDERED: L.E.T SOLUTION TP ONE ×2 (15:08→15:30)
--- NOTE | 2021-08-22 15:12 | NUR ---
BREAK RN: PT MEDICATED WITH L.E.T. PER DR. HALL FOR RIGHT THUMB WOUND, PT UNABLE TO TOLERATE WOUND CARE. WILL LET L.E.T TAKE EFFECT AND RETRY WOUND CARE. RUE ELEVATED WITH ICE PACK IN PLACE. CMS INTACT. RADIAL PULSE NORMAL. VSS. CALL LIGHT IN REACH. DISCUSSED PAIN WITH DR. HALL, NO OTHER ORDERS RECEIVED BEDSIDES L.E.T. FAMILY AT BEDSIDE
--- NOTE | 2021-08-22 15:38 | NUR ---
REPORT AND CARE BACK TO PRIMARY RN BASIL AT THIS TIME
[2021-08-22] MEDS ORDERED: MORPHINE SULFATE 4 MG/ML, 1ML IVPush PRN (16:00)
[2021-08-22 16:39] VITALS: BP 137/80
== END 2021-08-22 16:41 | disposition home or self-care (01) ==
LOC: ED 14:23
DX: S52.571A Other intraarticular fracture of lower end of right radius, initial encounter for closed fracture (principal); S20.212A Contusion of left front wall of thorax, initial encounter; S60.221A Contusion of right hand, initial encounter; S50.02XA Contusion of left elbow, initial encounter; S50.12XA Contusion of left forearm, initial encounter; I10 Essential (primary) hypertension; I48.91 Unspecified atrial fibrillation; W01.0XXA Fall on same level from slipping, tripping and stumbling without subsequent striking against object, initial encounter; Y93.89 Activity, other specified; Y92.410 Unspecified street and highway as the place of occurrence of the external cause; Y99.8 Other external cause status
CPT/HCPCS: 29125; 71101; 73100; 96374; 96375; 96376; 99284; J2270; J2405

== ENCOUNTER → 2021-08-26 | Outpatient (CLI) | payer MEDICARE | END | disposition home or self-care (01) | LOC: WOUND 14:56 | PROVIDERS: ATTEND Internal Medicine | DX: L59.8 Other specified disorders of the skin and subcutaneous tissue related to radiation (principal); S01.302D Unspecified open wound of left ear, subsequent encounter; T86.10 Unspecified complication of kidney transplant; L58.9 Radiodermatitis, unspecified; I48.11 Longstanding persistent atrial fibrillation; E11.22 Type 2 diabetes mellitus with diabetic chronic kidney disease; I12.9 Hypertensive chronic kidney disease with stage 1 through stage 4 chronic kidney disease, or unspecified chronic kidney disease; N18.9 Chronic kidney disease, unspecified; D63.1 Anemia in chronic kidney disease; N40.0 Benign prostatic hyperplasia without lower urinary tract symptoms; K58.9 Irritable bowel syndrome, unspecified; Z85.828 Personal history of other malignant neoplasm of skin; Z87.891 Personal history of nicotine dependence; Z79.01 Long term (current) use of anticoagulants; Z98.890 Other specified postprocedural states; Z99.2 Dependence on renal dialysis; Z90.49 Acquired absence of other specified parts of digestive tract; Z90.89 Acquired absence of other organs; Y84.2 Radiological procedure and radiotherapy as the cause of abnormal reaction of the patient, or of later complication, without mention of misadventure at the time of the procedure; Y83.8 Other surgical procedures as the cause of abnormal reaction of the patient, or of later complication, without mention of misadventure at the time of the procedure; X58.XXXD Exposure to other specified factors, subsequent encounter ==